=== PATIENT | female | born 1945 | race Caucasian/White ===

== ENCOUNTER 2020-03-09 10:15 | Outpatient (CLI) | payer MEDICARE, SELFPAY ==
--- NOTE | ~2020-03-09 | MM_ITS ---
EXAMINATION: MM screening candelario RT w artur HISTORY: Screening mammogram TECHNIQUE: Craniocaudal and mediolateral oblique 3-D tomosynthesis images were obtained and synthetic 2-D images were generated. CAD analysis was submitted and interpreted. COMPARISON: No prior mammogram is available for comparison at this institution. BREAST PARENCHYMAL COMPOSITION: There are scattered areas of fibroglandular density. FINDINGS: There are numerous benign right breast calcifications. There is no evidence of suspicious m ass, calcification, or architectural distortion to suggest malignancy in either breast. There has bee n no suspicious interval change. IMPRESSION: 1. No mammographic evidence of malignancy. 2. Recommend routine screening mammography in one year. BI-RADS Category 2: Benign finding(s). Reviewed, dictated and finalized at location A.
== END 2020-03-09 10:16 | disposition home or self-care (01) ==
LOC: ANHIMG 10:16
PROVIDERS: PCP Internal Medicine; Visit Provider Internal Medicine Hematology & Oncology
DX: Z12.31 Encounter for screening mammogram for malignant neoplasm of breast (principal)
CPT/HCPCS: 77063; 77067

== ENCOUNTER 2020-04-19 02:11 | Outpatient (CLI) | payer MEDICARE, SELFPAY ==
[2020-04-19 19:20] LABS: SARS-CoV-2 RNA PCR Negative
== END 2020-04-19 02:12 | disposition home or self-care (01) ==
LOC: ANHCOVIDDT 02:11
PROVIDERS: PCP Internal Medicine; Visit Provider Surgery
DX: Z01.812 Encounter for preprocedural laboratory examination (principal); Z20.828 Contact with and (suspected) exposure to other viral communicable diseases
CPT/HCPCS: 87635; C9803; U0003

== ENCOUNTER 2020-04-21 01:55 | Day surgery (SDC) | payer MEDICARE, SELFPAY ==
[2020-04-12 15:29] VITALS: BMI 33.0
[2020-04-21] MEDS: LACTATED RINGERS 1,000 ML 30 ML IV CONT (13:55)
[2020-04-21 14:03] LABS: Glucose Point of Care 104 (65-105)
--- NOTE | 2020-04-21 14:06 | WPDANESEPPF ---
Anes - Initial Pre Proc Eval Procedure: Operation Date: 04/21/20 15:00 Proposed Procedures p Removal Cassie Cath - Evan Vasquez DO Date/Time: 04/21/20 14:06 Surgeon: Evan Vasquez DO Pre Op Diagnosis: Carcinoma of Overlapping Sites of Left Breast Patient Data Age: 74 Gender: F Height: 5 ft 2 in Weight: 81.8 kg Allergies Allergy/AdvReac Type Severity Reaction Status Date / Time adhesive tape Allergy Intermediate Rash Verified 04/12/20 15:12 azithromycin Allergy Intermediate Swelling Verified 04/12/20 15:12 of Lip/Tongue/Throat cephalexin Allergy Mild Rash Verified 04/12/20 15:12 clindamycin Allergy Mild BLOOD IN Verified 04/12/20 15:12 STOOL metaxalone Allergy Mild Swelling Verified 04/12/20 15:12 of Lip/Tongue/Throat sulfamethoxazole Allergy Mild Rash Verified 04/12/20 15:12 trimethoprim Allergy Mild Rash Verified 04/12/20 15:12 venlafaxine Allergy Mild Back Pain Verified 04/12/20 15:12 carboxymethylcellulose sodium Allergy Unknown Other Verified 04/12/20 15:12 [From Refresh Plus] ezetimibe Allergy Unknown Dizziness Verified 04/12/20 15:12 olopatadine Allergy Unknown Other Verified 04/12/20 15:12 omeprazole Allergy Unknown Swelling Verified 04/12/20 15:12 Penicillins Allergy Unknown Rash Verified 04/12/20 15:12 [id number] Reductase Allergy Unknown Dizziness Verified 04/12/20 15:12 Inhibitor ciprofloxacin AdvReac Mild Other Verified 04/12/20 15:12 codeine AdvReac Mild Nausea Verified 04/12/20 15:12 esomeprazole AdvReac Mild Diarrhea Verified 04/12/20 15:12 Home Medications Medication Instructions Recorded Confirmed Type Calcium 600 + D(3) 600 tablet PO DAILY 05/25/19 04/12/20 History acetaminophen 500 mg PO Q4-6H PRN 05/25/19 04/12/20 History cholecalciferol (vitamin D3) 50,000 unit PO WEEKLY 05/25/19 04/12/20 History levothyroxine 112 mcg PO DAILY 05/25/19 04/21/20 History cyanocobalamin (vitamin B-12) 1,000 mcg PO DAILY 07/02/19 04/12/20 History ferrous sulfate 325 mg PO DAILY 07/02/19 04/12/20 History anastrozole 1 mg tablet 1 mg PO DAILY 11/05/19 04/12/20 History metformin 500 mg tablet 500 mg PO QPM tablet 11/05/19 04/12/20 History ascorbic acid (vitamin C) [Vitamin 500 mg PO DAILY 04/12/20 04/12/20 History C] ascorbic acid-vitamin E-biotin 1 tablet PO DAILY 04/12/20 04/12/20 History [Hair, Skin, Nails with Biotin] ibuprofen 200 mg PO Q6H PRN 04/12/20 04/12/20 History multivitamin 1 tablet PO DAILY 04/12/20 04/12/20 History Laboratory Tests 04/21/20 13:58 POC Capillary Glucose 104 mg/dl mg/dl (65-105) Patient hx anesthesia problems: none Family hx anesthesia problems: none PMFSH Past Medical History Medical History Anemia Anxiety Arthritis 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, estrogen receptor positive Diabetes Endometrial ca Fatty liver Hypothyroidism Obesity Peripheral neuropathy Hodges-Pravin syndrome 2008 Surgical History Surgical History History of mastectomy Family History Family History Father Carcinoma of colon Mother Family history of Alzheimer's disease Sibling Family history of seizure disorder Social History Social History Smoking status: Never smoker Alcohol intake: current Living arrangements: alone Spiritual care concerns: No Anes - Eval Final PreProcedure Day of Procedure 04/21/20 14:06 Patient weight: obese Heart: regular rate and rhythm Lungs: clear to auscultation Airway: Mallampati scale class II Neurological: alert and oriented Last oral intake: >/= 8 hours ASA classification: III Emergent: no Anesthetic plan: proceed Anesthesia type and monitoring: general GIVS and standard monitoring Informed Consent: The [facility]
[2020-04-21 14:07] VITALS: BP 137/56; PULSE 84; RESP 20; TEMP 36.7; O2SAT 98
--- NOTE | 2020-04-21 14:21 | PM.IMHP ---
H&P: HPI History of Present Illness Date/Time: 04/21/20 14:21 Chief complaint: Carcinoma of Overlapping Sites of Left Breast Narrative: Kelley Coleman is a 74 year old female with hx of left breast cancer. She has completed chemotherapy and now needs the port removed. Review of Systems Review of Systems: All systems reviewed & are unremarkable except as noted in HPI and below Constitutional: Constitutional: Denies chills, Denies fever(s), Denies headache(s) and Denies weight loss Eyes: Eyes: Denies change in vision ENT: Denies dizziness, Denies headache(s), Denies neck mass and Denies throat swelling Cardiovascular: Cardiovascular: Denies chest pain, Denies lightheadedness and Denies dyspnea Respiratory: Respiratory: Denies cough, Denies dyspnea and Denies wheezing Gastrointestinal: Gastrointestinal: Denies abdominal pain, Denies change in bowel habits, Denies nausea and Denies vomiting Genitourinary: Genitourinary: Denies hematuria and Denies dysuria Musculoskeletal: Musculoskeletal: Reports as per HPI Integumentary/Breasts: Skin/Breast: Reports as per HPI Neurologic: Denies dizziness and Denies headache(s) Allergic/Immunologic: Allergic/Immunologic: Denies throat swelling and Denies wheezing PMF Past Medical History Medical History Anemia Anxiety Arthritis 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, estrogen receptor positive Diabetes Endometrial ca Fatty liver Hypothyroidism Obesity Peripheral neuropathy Hodges-Pravin syndrome 2008 Surgical History Surgical History History of mastectomy Family History Family History Father Carcinoma of colon Mother Family history of Alzheimer's disease Sibling Family history of seizure disorder Social History Social History Smoking status: Never smoker Alcohol intake: current Living arrangements: alone Spiritual care concerns: No Meds Home Medications and Allergies Home Medications Medication Instructions Recorded Confirmed Type Calcium 600 + D(3) 600 tablet PO DAILY 05/25/19 04/12/20 History acetaminophen 500 mg PO Q4-6H PRN 05/25/19 04/12/20 History cholecalciferol (vitamin D3) 50,000 unit PO WEEKLY 05/25/19 04/12/20 History levothyroxine 112 mcg PO DAILY 05/25/19 04/21/20 History cyanocobalamin (vitamin B-12) 1,000 mcg PO DAILY 07/02/19 04/12/20 History ferrous sulfate 325 mg PO DAILY 07/02/19 04/12/20 History anastrozole 1 mg tablet 1 mg PO DAILY 11/05/19 04/12/20 History metformin 500 mg tablet 500 mg PO QPM tablet 11/05/19 04/12/20 History ascorbic acid (vitamin C) [Vitamin 500 mg PO DAILY 04/12/20 04/12/20 History C] ascorbic acid-vitamin E-biotin 1 tablet PO DAILY 04/12/20 04/12/20 History [Hair, Skin, Nails with Biotin] ibuprofen 200 mg PO Q6H PRN 04/12/20 04/12/20 History multivitamin 1 tablet PO DAILY 04/12/20 04/12/20 History Allergies Allergy/AdvReac Type Severity Reaction Status Date / Time adhesive tape Allergy Intermediate Rash Verified 04/12/20 15:12 azithromycin Allergy Intermediate Swelling Verified 04/12/20 15:12 of Lip/Tongue/Throat cephalexin Allergy Mild Rash Verified 04/12/20 15:12 clindamycin Allergy Mild BLOOD IN Verified 04/12/20 15:12 STOOL metaxalone Allergy Mild Swelling Verified 04/12/20 15:12 of Lip/Tongue/Throat sulfamethoxazole Allergy Mild Rash Verified 04/12/20 15:12 trimethoprim Allergy Mild Rash Verified 04/12/20 15:12 venlafaxine Allergy Mild Back Pain Verified 04/12/20 15:12 carboxymethylcellulose sodium Allergy Unknown Other Verified 04/12/20 15:12 [From Refresh Plus] ezetimibe Allergy Unknown Dizziness Verified 04/12/20 15:12 olopatadine Allergy Unknown Other Verified 04/12/20 15:12 omeprazole Allergy Unknown Swe
[2020-04-21] MEDS: ceFAZolin 2 GM/D5W 50 ML 2 GM/50 ML BAG IVPB (14:27)
[2020-04-21] MEDS: LIDO 1%/EPINEPHRINE 1:100,000 20 ML VIAL 30 ML INFILTRATE (14:46)
--- NOTE | 2020-04-21 14:55 | P.OP_ITS ---
Procedure Note - Detailed Date of procedure: 04/21/20 Pre-op diagnosis: Carcinoma of Overlapping Sites of Left Breast Post-op diagnosis: same Procedure performed: Removal of right internal jugular Port-A-Cath Description of procedure: * Procedure as well as risks, benefits, and alternatives were discussed with the patient. Written consent was obtained and placed in chart prior to procedure. Patient was brought back to surgical suite. She was placed supine on operating table. Time-out was done to confirm patient and procedure. IV sedation was then administered by the Anesthesia Department. Her right chest and neck area was prepped and draped in sterile fashion using chlorhexidine prep. 1% lidocaine with epinephrine was infiltrated directly over the port. a 3 cm transverse incision was made directly over the port using a 15 blade scalpel. Electrocautery was used for hemostasis and for dissection down to the capsule around the port. the port was then carefully freed up from the surrounding capsule and the sutures that were holding the port in place were cut away using suture scissors. This freed up the port completely. A 3 0 Vicryl [id number] suture was then placed around the port tubing as it tunneled up towards the neck. The port tubing was then carefully withdrawn and removed completely. Pressure was applied at the neck where the insertion into the internal jugular vein was at. The 3 0 Vicryl suture was then tied down in place. After holding pressure for several minutes, no bleeding was identified. The deep dermis was then reapproximated using 3 0 Vicryl simple interrupted sutures and the skin was approximated using 4 O Monocryl subcuticular suture. Exofin glue was then applied on top. Patient was then awakened from anesthesia and transferred to recovery. Anesthesia: MAC and local (1% lidocaine with epinephrine) Surgeon: Evan Vasquez DO Estimated blood loss (mL): 5 Complications: No immediate complications Condition: stable Disposition: same day Findings: * Right internal jugular Port-A-Cath was removed. The catheter tip appeared intact. No other abnormalities were noted. Port was sent to the lab for gross pathology only.
[2020-04-21 15:00] VITALS: BP 135/61; PULSE 94; RESP 16; O2SAT 100
[2020-04-21 15:30] VITALS: BP 142/73; PULSE 78; RESP 16
[2020-04-21 16:00] VITALS: BP 143/58; PULSE 77; RESP 16
[2020-04-21 16:11] LABS: Glucose Point of Care 148 (65-105)
== END 2020-04-21 16:15 | disposition home or self-care (01) ==
PROVIDERS: PCP Internal Medicine; Visit Provider Surgery
PROC: (CPT 36589; principal; 2020-04-21 15:00)
DX: Z45.2 Encounter for adjustment and management of vascular access device (principal); Z85.3 Personal history of malignant neoplasm of breast; Z92.21 Personal history of antineoplastic chemotherapy; E11.40 Type 2 diabetes mellitus with diabetic neuropathy, unspecified; E03.9 Hypothyroidism, unspecified; K76.0 Fatty (change of) liver, not elsewhere classified; D64.9 Anemia, unspecified; Z79.84 Long term (current) use of oral hypoglycemic drugs; Z79.811 Long term (current) use of aromatase inhibitors; Z85.42 Personal history of malignant neoplasm of other parts of uterus; Z90.12 Acquired absence of left breast and nipple
CPT/HCPCS: 36590; 88300; J0690; J2704; J3010; J7120

== ENCOUNTER 2020-10-04 09:41 | Outpatient (CLI) | payer MEDICARE, SELFPAY ==
--- NOTE | ~2020-10-04 | DEXA_ITS ---
Bone Density Report Name: Kelley Coleman Age: 74 Sex: Female Ethnicity: White Date of : 1945 Indication: postmenopausal; parental hip fracture; height loss; prior fracture; cancer; hysterectomy; Referring Provider: Karl Singh Study: Bone densitometry was performed. Exam Date: October 04, 2020 Accession number: [id number] Bone Density: Region BMD T-score Z-score Classification AP Spine (L1-L4) 0.904 -1.3 1.0 Osteopenia Femoral Neck (Left) 0.493 -3.2 -1.2 Osteoporosis Total Hip (Left) 0.679 -2.2 -0.5 Osteopenia Total Hip Bilateral Avg 0.689 -2.1 -0.4 Osteopenia Femoral Neck (Right) 0.545 -2.7 -0.8 Osteoporosis Total Hip (Right) 0.698 -2.0 -0.3 Osteopenia World Health Organization criteria for BMD impression classify patients as: Normal (T-score at or above -1.0), Osteopenia (T-score between -1.0 and -2.5), or Osteoporosis (T-score at or below -2.5). 10-year Fracture Risk: FRAX not reported because: Some T-score for Spine Total or Hip Total or Femoral Neck at or below -2.5 Clinical Information Provided by Patient: Has had a low trauma fracture Parent has had a hip fracture Has used the following medications: Fosamax (i.e. alendronate), Vitamin D, Calcium Has the following medical conditions: Cancer, Hysterectomy Patient maximum height was 64 Menopause Age: 51 No regular weight bearing exercise Drinks caffeinated beverages Onset of menses at age 13 Number of children 3 Impression: The patient has established osteoporosis, based on the Left Femoral Neck T-score and the existence of a prior fracture. The patient has risk factors, including: parental hip fracture, previous fracture. Discussion: HIGH RISK OF FRACTURE. BONE DENSITY IS UNDESIRABLY LOW AT ONE OR MORE SKELETAL SITES, CONSISTENT WITH POSTMENOPAUSAL OSTEOPOROSIS. This patient's lowest T-score, in a patient who has previously fractured, meets the World Health Organization's (WHO) criteria for severe osteoporosis. In untreated patients, the risk of osteoporotic fracture increases approximately two-fold for each 1.0 SD decrease in T-score. Low bone density is not the only risk factor for fracture; also consider factors such as patient's age, frailty or poor health, risk of falling, risk of injury, previous osteoporotic fracture, family history of osteoporosis, cigarette smoking, low body weight, etc. Not everyone with low bone mineral density has osteoporosis; osteomalacia and other metabolic bone disorders should also be considered. Patients who have osteoporosis should be evaluated for specific diseases and conditions (secondary causes) that may cause or contribute to bone loss. The [place] [employer]ocrinologists (AACE) and National Osteoporosis Foundation (NOF) recommend pharmacologic intervention for all postmenopausal women whose T-
== END 2020-10-04 09:42 | disposition home or self-care (01) ==
LOC: ANHIMG 09:42
PROVIDERS: PCP Internal Medicine; Visit Provider Internal Medicine Hematology & Oncology
DX: M85.89 Other specified disorders of bone density and structure, multiple sites (principal); M81.0 Age-related osteoporosis without current pathological fracture
CPT/HCPCS: 77080

== ENCOUNTER 2023-05-16 13:18 | Outpatient (CLI) | payer MEDICARE, SELFPAY ==
[2023-05-16 14:53] LABS: Basophils Percent Auto 0.8 % (0.2-1.2); Mean Corpuscular Volume 96.4 fl (80-100); Red Cell Distribution Width 13.3 % (11.5-14.5)
[2023-05-16 15:08] LABS: Eosinophils Absolute Auto 0.2 K/mm3 (0-0.3); Hematocrit 37.4 % (37.0-47.0); Hemoglobin 12.8 g/dL (12.0-15.0); Immature Granulocyte Absolute 0.02 K/mm3 (0.00-0.031); Immature Granulocyte Percent A 0.4 % (0-0.5); Lymphocytes Absolute Auto 1.69 K/mm3 (0.9-3.2); Lymphocytes Percent Auto 32.6 % (18.3-44.2); Mean Corpuscular HGB Conc 34.2 g/dl (32-36); Mean Platelet Volume 10.2 fl (7.4-10.4); Monocytes Absolute Auto 0.5 K/mm3 (0.1-0.6); Neutrophils Absolute Auto 2.7 K/mm3 (1.3-6.7); Neutrophils Percent Auto 52.2 % (45.5-73.1); Platelet Count Result 109 k/mm3 (150-375); Red Blood Count 3.88 M/mm3 (4.2-5.4); White Blood Count 5.2 K/mm3 (4.5-10.0)
[2023-05-16 16:26] LABS: Alanine Aminotransferase 37 U/L (6-35); Albumin Level 3.5 g/dL (3.5-5.1); Alkaline Phosphatase 69 U/L (38-126); Anion Gap 6 mmol/L (8-16); Aspartate Amino Transferase 55 U/L (14-36); Bilirubin,Total 1.3 mg/dL (0.2-1.3); Blood Urea Nitrogen 7 mg/dL (7-17); Calcium 8.4 mg/dL (8.4-10.2); Carbon Dioxide 25 mmol/L (22-30); Chloride 107 mmol/L (98-107); Estimated Glomerular Filt Rate > 60; Glucose 109 mg/dL (65-110); Sodium 138 mmol/L (137-145)
[2023-05-20 14:49] LABS: CA 15-3 20 U/mL (<32)
== END 2023-05-16 13:19 | disposition home or self-care (01) ==
LOC: ANHLAB 13:21
PROVIDERS: PCP Internal Medicine; Visit Provider Internal Medicine Hematology & Oncology
DX: C50.812 Malignant neoplasm of overlapping sites of left female breast (principal); Z17.0 Estrogen receptor positive status [ER+]
CPT/HCPCS: 36415; 80053; 85025; 86300

== ENCOUNTER 2024-04-07 12:34 | Outpatient (CLI) | payer MEDICARE, SELFPAY ==
[2024-04-07 13:25] LABS: Hematocrit 39.4 % (37.0-47.0); Hemoglobin 13.6 g/dL (12.0-15.0); Immature Platelet Fraction Pct 3.6 % (0.9-11.2); Mean Corpuscular HGB Conc 34.5 g/dl (32-36); Mean Corpuscular Hemoglobin 33.7 pg (26-34); Mean Corpuscular Volume 97.5 fl (80-100); Mean Platelet Volume 10.2 fl (7.4-10.4); Platelet Count Result 103 k/mm3 (150-375); Red Blood Count 4.04 M/mm3 (4.2-5.4); Red Cell Distribution Width 14.2 % (11.5-14.5); White Blood Count 5.1 K/mm3 (4.5-10.0)
[2024-04-07 13:35] LABS: Alanine Aminotransferase 24 U/L (6-35); Albumin Level 3.7 g/dL (3.5-5.1); Alkaline Phosphatase 59 U/L (38-126); Anion Gap 8 mmol/L (4-12); Aspartate Amino Transferase 46 U/L (14-36); Bilirubin,Total 1.4 mg/dL (0.2-1.3); Blood Urea Nitrogen 8 mg/dL (7-17); Calcium 8.7 mg/dL (8.4-10.2); Carbon Dioxide 27 mmol/L (22-30); Chloride 105 mmol/L (98-107); Estimated Glomerular Filt Rate > 60; Glucose 99 mg/dL (65-110); Potassium 3.5 mmol/L (3.4-5.0); Sodium 140 mmol/L (137-145)
[2024-04-07 13:51] LABS: Iron 86 ug/dL (37-170)
[2024-04-07 14:02] LABS: Percent Iron Saturation 29 % (20-50)
[2024-04-07 14:23] LABS: Hepatitis B Surface Antigen Negative (Negative)
[2024-04-07 14:28] LABS: HAV RESULT Negative (Negative); Hepatitis B Core IgM Result Negative (Negative)
[2024-04-07 14:40] LABS: Hepatitis B Surface Anti Res Negative; Hepatitis C Virus Antibody Negative (Negative)
[2024-04-08 14:29] LABS: Alpha-1-Antitrypsin, QN 224 mg/dL (83-199); Ceruloplasmin 36 mg/dL (14-48)
[2024-04-09 11:17] LABS: Alpha Fetoprotein Tumor Marker 6.2 ng/mL
[2024-04-09 22:49] LABS: LKM 1 Antibody <=20.0 U (<=20.0)
[2024-04-11 12:33] LABS: Actin Antibody (IgG) 23 U (<20)
[2024-04-15 21:03] LABS: Hepatitis A Antibody Total REACTIVE (NON-REACTIVE); Hepatitis B Core Ab Total NON-REACTIVE (NON-REACTIVE)
[2024-04-19 14:47] LABS: Mitochondrial (M2) Ab (IgG) <20.0 U
== END 2024-04-07 12:35 | disposition home or self-care (01) ==
LOC: ANHLAB 12:53
PROVIDERS: PCP Family Medicine; Visit Provider Nurse Practitioner
DX: K74.60 Unspecified cirrhosis of liver (principal); K52.9 Noninfective gastroenteritis and colitis, unspecified; Z11.59 Encounter for screening for other viral diseases
CPT/HCPCS: 36415; 80053; 80074; 82103; 82105; 82390; 82728; 83520; 83540; 83550; 85027; 85055; 86038; 86039; 86364; 86376; 86704; 86706; 86708

== ENCOUNTER 2024-05-19 10:25 | Outpatient (CLI) | payer MEDICARE, SELFPAY ==
[2024-05-19 10:42] LABS: Eosinophils Absolute Auto 0.2 K/mm3 (0-0.3); Eosinophils Percent Auto 5.8 % (0-4.4); Hematocrit 35.3 % (37.0-47.0); Hemoglobin 11.7 g/dL (12.0-15.0); Lymphocytes Absolute Auto 0.97 K/mm3 (0.9-3.2); Lymphocytes Percent Auto 24.3 % (18.3-44.2); Mean Corpuscular HGB Conc 33.1 g/dl (32-36); Mean Corpuscular Hemoglobin 33.3 pg (26-34); Mean Corpuscular Volume 100.6 fl (80-100); Mean Platelet Volume 9.8 fl (7.4-10.4); Monocytes Absolute Auto 0.5 K/mm3 (0.1-0.6); Monocytes Percent Auto 11.3 % (2.6-8.5); Neutrophils Absolute Auto 2.3 K/mm3 (1.3-6.7); Neutrophils Percent Auto 57.6 % (45.5-73.1); Platelet Count Result 69 k/mm3 (150-375); Red Blood Count 3.51 M/mm3 (4.2-5.4)
[2024-05-19 12:38] LABS: Alanine Aminotransferase 24 U/L (6-35); Albumin Level 3.3 g/dL (3.5-5.1); Alkaline Phosphatase 57 U/L (38-126); Anion Gap 7 mmol/L (4-12); Aspartate Amino Transferase 42 U/L (14-36); Blood Urea Nitrogen 7 mg/dL (7-17); Calcium 8.6 mg/dL (8.4-10.2); Carbon Dioxide 25 mmol/L (22-30); Chloride 107 mmol/L (98-107); Estimated Glomerular Filt Rate > 60; Glucose 173 mg/dL (65-110); Potassium 3.9 mmol/L (3.4-5.0); Sodium 139 mmol/L (137-145)
[2024-05-21 07:24] LABS: CA 15-3 19 U/mL (<32)
== END 2024-05-19 10:26 | disposition home or self-care (01) ==
LOC: ANHLAB 10:27
PROVIDERS: PCP Family Medicine; Visit Provider Internal Medicine Hematology & Oncology
DX: C50.412 Malignant neoplasm of upper-outer quadrant of left female breast (principal); Z17.0 Estrogen receptor positive status [ER+]
CPT/HCPCS: 36415; 80053; 85025; 86300

== ENCOUNTER 2024-11-16 13:06 | Outpatient (CLI) | payer MEDICARE, SELFPAY ==
[2024-11-16 13:22] LABS: Basophils Percent Auto 0.7 % (0.2-1.2); Eosinophils Absolute Auto 0.2 K/mm3 (0-0.3); Eosinophils Percent Auto 3.9 % (0-4.4); Hematocrit 37.4 % (37.0-47.0); Hemoglobin 12.8 g/dL (12.0-15.0); Immature Granulocyte Absolute 0.01 K/mm3 (0.00-0.031); Immature Granulocyte Percent A 0.2 % (0-0.5); Immature Platelet Fraction Pct 2.9 % (0.9-11.2); Lymphocytes Absolute Auto 1.53 K/mm3 (0.9-3.2); Lymphocytes Percent Auto 28.5 % (18.3-44.2); Mean Corpuscular HGB Conc 34.2 g/dl (32-36); Mean Corpuscular Hemoglobin 33.2 pg (26-34); Mean Corpuscular Volume 96.9 fl (80-100); Mean Platelet Volume 9.5 fl (7.4-10.4); Monocytes Absolute Auto 0.6 K/mm3 (0.1-0.6); Monocytes Percent Auto 10.8 % (2.6-8.5); Neutrophils Percent Auto 55.9 % (45.5-73.1); Platelet Count Result 89 k/mm3 (150-375); Red Blood Count 3.86 M/mm3 (4.2-5.4); Red Cell Distribution Width 13.8 % (11.5-14.5); White Blood Count 5.4 K/mm3 (4.5-10.0)
[2024-11-16 13:52] LABS: Alanine Aminotransferase 29 U/L (6-35); Albumin Level 3.5 g/dL (3.5-5.1); Alkaline Phosphatase 64 U/L (38-126); Anion Gap 4 mmol/L (4-12); Aspartate Amino Transferase 45 U/L (14-36); Bilirubin,Total 1.1 mg/dL (0.2-1.3); Blood Urea Nitrogen 6 mg/dL (7-17); Calcium 9.2 mg/dL (8.4-10.2); Carbon Dioxide 29 mmol/L (22-30); Chloride 106 mmol/L (98-107); Estimated Glomerular Filt Rate > 60; Glucose 104 mg/dL (65-110); Potassium 4.3 mmol/L (3.4-5.0); Sodium 139 mmol/L (137-145)
--- OUTSIDE RECORDS SUMMARY | 2024-11-16 14:29 | XMS_ITS | Encounter Summary ---
Author Organization [facility] Address [address] [place] [address] Care Team Providers Care Hydrocrane Operator Name Role Phone Tita Russell MD Primary Care Provider + [phone] Encounter Details Date Type Department Care Team (Late st Contact Info) Description 03/04/2018 Lab Requisition [facility] [address] [place] [address] Chava Sin [place] [address] Social History Tobacco Use Types Packs/Day Years Used Date Smoking Tobacco: Never Assessed Sex and Gender Information Value Date Recorded Sex Assigned at Not on file Gender Identity Not on file Sexual Orientation Not on file documented as of this encounter Plan of Treatment Not on file documented as of this encounter Procedures Procedure Name Priority Date/Time Associated Diagnosis Comments DERMATOPATHOLOGY Routine 03/03/2018 12:0 0 AM CDT documented in this encounter Results * DERMATOPATHOLOGY (03/03/2018 12:00 AM CDT) Case Report Dermatopathology Report Case: [id number] Authorizing Provider: Chava Sin MD Collected: 03/03/2018 12:00 AM Pathologist: Cesia Foster MD Received: 03/04/2018 11:58 AM Specimen: Skin, right anterior chest 8 4:57 PM T DERMATOPATHOLOGY LABORATORY Final Diagnosis Specimen A. 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 4:57 PM T DERMATOPATHOLOGY LABORATORY Gross Description Specimen A: Received is one formalin filled container labeled with the patient's name and designated right anterior chest. The specimen consists of a shave biopsy measuring [id number]. Jar 0. 4:57 PM [facility] [place] 2] DERMATOPATHOLOGY LABORATORY Microscopic Description Specimen A. SKIN, right anterior chest: Sections show well-circumscribed lobules composed of central mature sebocytes and a smaller component of peripheral basaloid cells. COMMENT: Sebaceous neoplasms can be sporadic or associated with Aurea-Alvin syndrome. At the request of the clinician the specimen can be submitted for immunohistochemical testing of DNA mismatch repair genes if clinically indicated. 4:57 PM T DERMATOPATHOLOGY LABORATORY Disclaimer An external and internal positive and negative controls are appropriate for the histochemical, immunohistochemical and immunofluorescence stain(s) in this case (if any), except where stated explicitly. The performance characteristics of the stain(s) cited in this report were developed and its performance characteristic determined by the Dermatopathology Laboratory at [facility]. These tests need not be, and therefore are not, approved by the [place] Food and Drug Administration. The tests are used for clinical purposes. Billing Codes Specimen Charges Stain Charges 02019 1 4:57 PM CDT DERMATOPATHOLOGY LABORATORY Embedded Images 4:57 PM CDT DERMATOPATHOLOGY LABORATORY Pathology/Cytolog y TISSUE SPECIMEN FROM SKIN / Unknown 03/03/2018 03/04/2018 11:58 AM CDT Chava Sin MD LAB - PATHOLOGY/CYTO LOGY ORDERABLES DERMATOPATHOLOGY LABORATORY [facility] - Department of Dermatology [address] [place] [address] 5th Floor Lab [address] [phone] documented in this encounter Visit Diagnoses Not on filedocumented in this encounter Care Teams Hydrocrane Operator Relationship Specialty Start Date End Date Tita Russell MD PCP - General Internal Medicine 03/16/19 documented as of this encounter
--- OUTSIDE RECORDS SUMMARY | 2024-11-16 14:29 | XMS_ITS | Encounter Summary ---
Author Organization [facility] Address [address] [place] [address] Care Team Providers Care Tin Plater Name Role Phone Emi Dias MD Primary Care Provider [phone] Encounter Details Date Type Department Care Team (Latest Contact Info) Description 07/21/2006 Inpatient Historical HIS PATIENT IN A BED Renae Mike MD NO ADDRESS ON FILE Malignant Neoplasm of Corpus Uteri, except Isthmus (CMS/HCC) (Primary Dx) Social History Tobacco Use Types Packs/Day Years Used Date Smoking Tobacco: Never Assessed Comments Unknown Sex and Gender Information Value Date Recorded Sex Assigned at Not on file Legal Sex Female 5:05 AM ESCALATOR OPERATOR Gender Identity Not on file Sexual Orientation Not on file documented as of this encounter Plan of Treatment Upcoming Encounters Date Type Department Care Team (Late st Contact Info) Description 11/24/2024 11:30 AM CDT Office Visit [facility] Oncology and Hematology - [place] [address] [facility] [address] [place] [address] Karl Singh MD [address] [facility] [address] [place] [address] documented as of this encounter Procedures Procedure Name Priority Date/Time Associated Diagnosis Comments POC GLUCOSE Routine 07/23/2006 4:50 PM ESCALATOR OPERATOR POC GLUCOSE Routine 07/23/2006 6:29 AM ESCALATOR OPERATOR CBC WITH DIFFERENTIAL Routine 07/23/2006 4:45 AM ESCALATOR OPERATOR CBC WITH DIFFERENTIAL Routine 07/23/2006 4:45 AM ESCALATOR OPERATOR MAGNESIUM LEVEL Routine 07/23/2006 4:45 AM ESCALATOR OPERATOR BASIC METABOLIC PANEL Routine 07/23/2006 4:45 AM ESCALATOR OPERATOR POC GLUCOSE Routine 07/22/2006 8:39 PM ESCALATOR OPERATOR POC GLUCOSE Routine 07/22/2006 5:11 PM ESCALATOR OPERATOR CBC WITH DIFFERENTIAL Routine 07/22/2006 2:13 PM ESCALATOR OPERATOR CBC WITH DIFFERENTIAL Routine 07/22/2006 2:13 PM ESCALATOR OPERATOR MAGNESIUM LEVEL Routine 07/22/2006 2:13 PM ESCALATOR OPERATOR BASIC METABOLIC PANEL Routine 07/22/2006 2:13 PM ESCALATOR OPERATOR POC GLUCOSE Routine 07/22/2006 11:41 AM ESCALATOR OPERATOR POC GLUCOSE Routine 07/22/2006 5:15 AM ESCALATOR OPERATOR POC GLUCOSE Routine 07/21/2006 9:39 PM ESCALATOR OPERATOR POC GLUCOSE Routine 07/21/2006 10:27 AM ESCALATOR OPERATOR POC , URINE Routine 07/21/2006 9:17 AM ESCALATOR OPERATOR documented in this encounter Results * (ABNORMAL) POC GLUCOSE (07/23/2006 4:50 PM ESCALATOR OPERATOR) GLUCOSE POC 137(H) 65 - 99 mg/dL INTERFACE SYSTEM Comment: 06/26/2006 Change in reference range to correspond to Main Lab reference range. 07/23/2006 4:50 PM ESCALATOR OPERATOR us Renae Mike MD POINT OF CARE TESTING Final R esult Performing Organization Address [facility] de Phone Number INTERFACE SYSTEM Refer to clinic/hospital department * (ABNORMAL) POC GLUCOSE (07/23/2006 6:29 AM ESCALATOR OPERATOR) Pathologist [facility] GLUCOSE POC 167(H) 65 - 99 mg/dL INTERFACE SYSTEM Comment: 06/26/2006 Change in reference range to correspond to Main Lab reference range. 07/23/2006 6:29 AM ESCALATOR OPERATOR Renae Mike MD POINT OF CARE TESTING Final R esult Performing Organization Address [facility] de Phone Number INTERFACE SYSTEM Refer to clinic/hospital department * CBC WITH DIFFERENTIAL (07/23/2006 4:45 AM ESCALATOR OPERATOR) [facility] NEUTROPHILS 66 45 - 70 % INTERFAC E SYSTEM LYMPHOCYTES 17 16 - 45 % INTERFAC E SYSTEM MONOCYTES 12 3 - 13 % INTERFACE SYSTEM EOSINOPHILS 4 0 - 7 % INTERFAC E SYSTEM BASOPHILS 0 0 - 2 % INTERFACE SYSTEM NEUTROPHIL ABSOLUTE 5.79 1.90 - 7.00 K/uL INTERFACE SYSTEM LYMPHOCYTE ABSOLUTE 1.52 0.70 - 4.50 K/uL INTERFACE SYSTEM MONOCYTE ABSOLUTE 1.04 0.10 - 1.30 K/uL INTERFACE SYSTEM EOSINOPHIL ABSOLUTE 0.36 0.00 - 0.70 K/uL INTERFACE SYSTEM BASOPHILS ABSOLUTE 0.02 0.00 - 0.20 K/uL INTERFACE SYSTEM 07/23/2006 4:45 AM ESCALATOR OPERATOR Result [facility] Renae Mike MD HEMATOLOGY ORDERABLES Final R esult Performing Organization Address [facility] de Phone Number INTERFACE SYSTEM Refer to clinic/hospital department * (ABNORMAL) CBC WITH DIFFERENTIAL (07/23/2006 4:45 AM ESCALATOR OPERATOR) Pathologist [facility] WBC 8.7 4.0 - 9.8 K/uL INTERFACE SYSTEM RBC 3.58(L) 3.90 - 4.90 M/uL INTERFACE SYSTEM HEMOGLOBIN 10.9(L) 11.8 - 14.8 g/dL INTERFACE SYSTEM HEMATOCRIT 32.7(L) 35.5 - 44.0 % INTERFACE SYSTEM MCV 91.3 82.0 - 99.0 fL INTERFACE SYSTEM MCH 30.4 27.2 - 32.6 pg INTERFACE SYSTEM MCHC 33.3 31.5 - 35.5 % INTERFACE SYSTEM RDW 13.8 11.5 - 14.5 % INTERFACE SYSTEM RDW-STDEV 45.7 37.1 - 48.7 fL INTERFACE SYSTEM PLATELETS 230 140 - 350 K/uL INTERFACE SYSTEM MPV 9.9 9.3 - 12.4 fL INTERFACE SYSTEM 07/23/2006 4:45 AM ESCALATOR OPERATOR Renae Mike MD HEMATOLOGY ORDERABLES Final R esult Performing Organization Address [facility] Co de Phone Number INTERFACE SYSTEM Refer to clinic/hospital department * MAGNESIUM LEVEL (07/23/2006 4:45 AM ESCALATOR OPERATOR) MAGNESIUM 1.9 1.5 - 2.5 mg/dL INTERFACE SYSTEM 07/23/2006 4:45 AM ESCALATOR OPERATOR Renae Mike MD CHEMISTRY ORDERABLES Final Re sult Performing Organization Address [facility] de Phone Number INTERFACE SYSTEM Refer to clinic/hospital department * (ABNORMAL) BASIC METABOLIC PANEL (07/23/2006 4:45 AM ESCALATOR OPERATOR) GLUCOSE 126(H) 65 - 99 mg/dL INTERFACE SYSTEM CREATININE 0.71 0.51 - 0.95 mg/dL INTERFACE SYSTEM Comment:Note: Effective 06/11 New Methodolgy and Reference Ranges CALCIUM 7.7(L) 8.4 - 10.2 mg/dL INTERFACE SYSTEM BUN 6 6 - 20 mg/dL INTERFACE SYSTEM SODIUM 143 135 - 145 mmol/L INTERFACE SYSTEM POTASSIUM 3.8 3.5 - 4.9 mmol/L INTERFACE SYSTEM CHLORIDE 110(H) 96 - 108 mmol/L INTERFACE SYSTEM CO2 28 22 - 30 mmol/L INTERFACE SYSTEM GFR, >60 >=60 mL/min/1. 7 sq meter INTERFACE SYSTEM GFR >60 >=60 mL/min/1. 7 sq meter INTERFACE SYSTEM Comment: Estimated GFR rate interpretative information for both Americans and non- Americans is available on the [facility] Intranet at: [email or web address] Select: Lab Policies and Procedures Select: Reference Ranges - GFR 07/23/2006 4:45 AM ESCALATOR OPERATOR Result Kelly Mike MD CHEMISTRY ORDERABLES Final Re sult Performing Organization Address [facility] Phone Number INTERFACE SYSTEM Refer to clinic/hospital department * (ABNORMAL) POC GLUCOSE (07/22/2006 8:39 PM ESCALATOR OPERATOR) COMMENT, GLU POC Notified RN INTERFACE SYSTEM GLUCOSE POC 145(H) 65 - 99 mg/dL INTERFACE SYSTEM Comment: 06/26/2006 Change in reference range to correspond to Main Lab reference range. 07/22/2006 8:39 PM ESCALATOR OPERATOR us eRnae Mike MD POINT OF CARE TESTING Final R esult Performing Organization Address [facility] Phone Number INTERFACE SYSTEM Refer to clinic/hospital department * (ABNORMAL) POC GLUCOSE (07/22/2006 5:11 PM ESCALATOR OPERATOR) GLUCOSE POC 121(H) 65 - 99 mg/dL INTERFACE SYSTEM 07/22/2006 5:11 PM ESCALATOR OPERATOR Result Kelly Mike MD POINT OF CARE TESTING Final R kenneth Performing Organization Address [facility] Phone Number INTERFACE SYSTEM Refer to clinic/hospital department * (ABNORMAL) CBC WITH DIFFERENTIAL (07/22/2006 2:13 PM ESCALATOR OPERATOR) NEUTROPHILS 73(H) 45 - 70 % INTERFAC E SYSTEM LYMPHOCYTES 18 16 - 45 % INTERFAC E SYSTEM MONOCYTES 9 3 - 13 % INTERFACE SYSTEM EOSINOPHILS 1 0 - 7 % INTERFAC E SYSTEM BASOPHILS 0 0 - 2 % INTERFACE SYSTEM NEUTROPHIL ABSOLUTE 9.50(H) 1.90 - 7.00 K/uL INTERFACE SYSTEM LYMPHOCYTE ABSOLUTE 2.32 0.70 - 4.50 K/uL INTERFACE SYSTEM MONOCYTE ABSOLUTE 1.15 0.10 - 1.30 K/uL INTERFACE SYSTEM EOSINOPHIL ABSOLUTE 0.06 0.00 - 0.70 K/uL INTERFACE SYSTEM BASOPHILS ABSOLUTE 0.04 0.00 - 0.20 K/uL INTERFACE SYSTEM 07/22/2006 2:13 PM ESCALATOR OPERATOR Renae Mike MD HEMATOLOGY ORDERABLES Final R esult Performing Organization Address [facility] Phone Number INTERFACE SYSTEM Refer to clinic/hospital department * (ABNORMAL) CBC WITH DIFFERENTIAL (07/22/2006 2:13 PM ESCALATOR OPERATOR) WBC 13.1(H) 4.0 - 9.8 K/uL INTERFACE SYSTEM RBC 3.84(L) 3.90 - 4.90 M/uL INTERFACE SYSTEM HEMOGLOBIN 11.5(L) 11.8 - 14.8 g/dL INTERFACE SYSTEM HEMATOCRIT 34.2(L) 35.5 - 44.0 % INTERFACE SYSTEM MCV 89.1 82.0 - 99.0 fL INTERFACE SYSTEM MCH 29.9 27.2 - 32.6 pg INTERFACE SYSTEM MCHC 33.6 31.5 - 35.5 % INTERFACE SYSTEM RDW 13.7 11.5 - 14.5 % INTERFACE SYSTEM RDW-STDEV 44.5 37.1 - 48.7 fL INTERFACE SYSTEM PLATELETS 263 140 - 350 K/uL INTERFACE SYSTEM MPV 9.6 9.3 - 12.4 fL INTERFACE SYSTEM 07/22/2006 2:13 PM ESCALATOR OPERATOR Renae Mike MD HEMATOLOGY ORDERABLES Final R esult Performing Organization Address [facility] Phone Number INTERFACE SYSTEM Refer to clinic/hospital department * MAGNESIUM LEVEL (07/22/2006 2:13 PM ESCALATOR OPERATOR) MAGNESIUM 1.9 1.5 - 2.5 mg/dL INTERFACE SYSTEM 07/22/2006 2:13 PM ESCALATOR OPERATOR Renae Mike MD CHEMISTRY ORDERABLES Final Re sult Performing Organization Address [facility] Phone Number INTERFACE SYSTEM Refer to clinic/hospital department * (ABNORMAL) BASIC METABOLIC PANEL (07/22/2006 2:13 PM ESCALATOR OPERATOR) GLUCOSE 112(H) 65 - 99 mg/dL INTERFACE SYSTEM CREATININE 0.77 0.51 - 0.95 mg/dL INTERFACE SYSTEM Comment:Note: Effective 06/11 New Methodolgy and Reference Ranges CALCIUM 7.7(L) 8.4 - 10.2 mg/dL INTERFACE SYSTEM BUN 8 6 - 20 mg/dL INTERFACE SYSTEM SODIUM 138 135 - 145 mmol/L INTERFACE SYSTEM POTASSIUM 3.9 3.5 - 4.9 mmol/L INTERFACE SYSTEM CHLORIDE 104 96 - 108 mmol/L INTERFACE SYSTEM CO2 28 22 - 30 mmol/L INTERFACE SYSTEM GFR, >60 >=60 mL/min/1. 7 sq meter INTERFACE SYSTEM GFR >60 >=60 mL/min/1. 7 sq meter INTERFACE SYSTEM Comment: Estimated GFR rate interpretative information for both Americans and non- Americans is available on the [facility] Intranet at: [email or web address] Select: Lab Policies and Procedures Select: Reference Ranges - GFR 07/22/2006 2:13 PM ESCALATOR OPERATOR Renae Mike MD CHEMISTRY ORDERABLES Final Re sult Performing Organization Address [facility] de Phone Number INTERFACE SYSTEM Refer to clinic/hospital department * (ABNORMAL) POC GLUCOSE (07/22/2006 11:41 AM ESCALATOR OPERATOR) GLUCOSE POC 146(H) 65 - 99 mg/dL INTERFACE SYSTEM Comment: 06/26/2006 Change in reference range to correspond to Main Lab reference range. 07/22/2006 11:4 1 AM ESCALATOR OPERATOR Renae Mike MD POINT OF CARE TESTING Final R esult Performing Organization Address [facility] Co de Phone Number INTERFACE SYSTEM Refer to clinic/hospital department * (ABNORMAL) POC GLUCOSE (07/22/2006 5:15 AM ESCALATOR OPERATOR) GLUCOSE POC 190(H) 65 - 99 mg/dL INTERFACE SYSTEM Comment: 06/26/2006 Change in reference range to correspond to Main Lab reference range. 07/22/2006 5:15 AM ESCALATOR OPERATOR us Renae Mike MD POINT OF CARE TESTING Final R esult Performing Organization Address [facility] Phone Number INTERFACE SYSTEM Refer to clinic/hospital department * (ABNORMAL) POC GLUCOSE (07/21/2006 9:39 PM ESCALATOR OPERATOR) GLUCOSE POC 165(H) 65 - 99 mg/dL INTERFACE SYSTEM Comment: 06/26/2006 Change in reference range to correspond to Main Lab reference range. 07/21/2006 9:39 PM ESCALATOR OPERATOR us Renae Mike MD POINT OF CARE TESTING Final R esult Performing Organization Address [facility] Phone Number INTERFACE SYSTEM Refer to clinic/hospital department * (ABNORMAL) POC GLUCOSE (07/21/2006 10:27 AM ESCALATOR OPERATOR) GLUCOSE POC 112(H) 65 - 99 mg/dL INTERFACE SYSTEM Comment: 06/26/2006 Change in reference range to correspond to Main Lab reference range. 07/21/2006 10:2 7 AM ESCALATOR OPERATOR us Renae Mike MD POINT OF CARE TESTING Final R esult Performing Organization Address [facility] Phone Number INTERFACE SYSTEM Refer to clinic/hospital department * POC , URINE (07/21/2006 9:17 AM ESCALATOR OPERATOR) HCG QUAL URINE Negative Negative INTER FACE SYSTEM SPECIFIC GRAVITY UA 1.020 1.001 - 1.035 INTERFACE SYSTEM 07/21/2006 9:17 AM ESCALATOR OPERATOR Result Kelly Mike MD POINT OF CARE TESTING Final R esult Performing Organization Address [facility] Phone Number INTERFACE SYSTEM Refer to clinic/hospital department documented in this encounter Visit Diagnoses Diagnosis Malignant neoplasm of corpus uteri, except isthmus (CMS/HCC)- Primary Malignant neoplasm of corpus uteri, except isthmus documented in this encounter Care Teams Tin Plater Relationship Specialty [place] [id number] [address] PCP - General Family Practice 11/12/23 documented as of this encounter
--- OUTSIDE RECORDS SUMMARY | 2024-11-16 14:29 | XMS_ITS | Encounter Summary ---
Author Organization [facility] Address [address] [place] [address] Care Team Providers Care Employee Development Director Name Role Phone Emi Dias MD Primary Care Provider [phone] Encounter Details Date Type Department Care Team (Latest Contact Info) Description 07/21/2006 Outpatient Historical HIS LAB,NON-PATIENT Renae Mike MD NO ADDRESS ON FILE Other Specified Disorders of Uterus, not Elsewhere Classified (Primary Dx) Social History Tobacco Use Types Packs/Day Years Used Date Smoking Tobacco: Never Assessed Comments Unknown Sex and Gender Information Value Date Recorded Sex Assigned at Not on file Legal Sex Female 5:05 AM WELDING TECHNICIAN Gender Identity Not on file Sexual Orientation Not on file documented as of this encounter Plan of Treatment Upcoming Encounters Date Type Department Care Team (Late st Contact Info) Description 11/24/2024 11:30 AM CDT Office Visit [facility] Oncology and Hematology - [place] [address] [facility] [address] [place] [address] Karl Singh MD [address] [facility] [address] [place] [address] documented as of this encounter Visit Diagnoses Diagnosis Other specified disorders of uterus, not elsewhere classified- Primary documented in this encounter Care Teams Employee Development Director Relationship Specialty [place] [address] [address] [facility] [address] [place] [address] PCP - General Family Practice 11/12/23 documented as of this encounter
--- OUTSIDE RECORDS SUMMARY | 2024-11-16 14:29 | XMS_ITS | Encounter Summary ---
Author Organization [facility] Address [address] [place] [address] Care Team Providers Care Commercial Loan Assistant Name Role Phone Unavailable Primary Care Provider Unavailabl e Encounter Details Date Type Department Care Team (Latest Contact Info) Description 07/24/1922 10:55 AM MEDICAL OFFICE MANAGER - 07/24/1922 11:59 PM MEDICAL OFFICE MANAGER Hospital Encounter [facility] Kash Antunez [address] [place] [address] [facility], External Provider [address] [place] [address] Discharge Disposition: Home or Self Care Social History Tobacco Use Types Packs/Day Years Used Date Smoking Tobacco: Never Assessed Comments Unknown Sex and Gender Information Value Date Recorded Sex Assigned at Not on file Legal Sex Female 5:05 AM MEDICAL OFFICE MANAGER Gender Identity Not on file Sexual Orientation Not on file documented as of this encounter Plan of Treatment Upcoming Encounters Date Type Department Care Team (Late st Contact Info) Description 11/24/2024 11:30 AM CDT Office Visit [facility] Oncology and Hematology - [place] [address] [facility] [address] [place] [address] Karl Singh MD [address] [facility] [address] [place] [address] documented as of this encounter Procedures Procedure Name Priority Date/Time Associated Diagnosis Comments MAMMO PRIOR STUDY Routine 07/24/1922 10: 55 AM MEDICAL OFFICE MANAGER Follow-up exam documented in this encounter Results * MAMMO PRIOR STUDY (07/24/1922 10:55 AM MEDICAL OFFICE MANAGER) Narrative 08/14/2022 10:52 AM MEDICAL OFFICE MANAGER This exam was auto finalized to allow images to be scanned to PACS. External Provider [facility] DIAGNOSTIC IMAGING ORDER ANTONIO Final Result documented in this encounter Visit Diagnoses Diagnosis Follow-up exam Unspecified follow-up examination documented in this encounter
--- OUTSIDE RECORDS SUMMARY | 2024-11-16 14:29 | XMS_ITS | Clinical Summary ---
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 MD, 11/03/2024 10:30 AM Narrative 11/03/2024 10:34 AM CDT [facility] [address] [address] EXAMINATION: Limited Abdomen Ultrasound: RUQ EXAM DATE/TIME: 11/03/2024 8:39 AM REASON FOR EXAM: Liver cirrhosis COMPARISON: 02/18/2024, 03/09/2024 TECHNIQUE: An ultrasound examination of the RUQ was performed FINDINGS: Pancreas: Partially visualized with normal echogenicity. Liver: Slightly heterogeneous echogenicity. No discrete mass or biliary ductal dilatation seen. The liver measures 16 cm in craniocaudal extent. Portal vein: Spectral analysis reveals normal hepatopetal flow. Inferior vena cava: Normal in its viewed portions. Gallbladder: Not visualized Common bile duct: 0.7 centimeters Right kidney: 9.0 cm X 4.1 cm X 4.3 cm.. Normal echogenicity. No hydronephrosis Other findings: No ascites. Procedure Note Ronal Busch MD - 11/03/2024 [facility] [address] [place] [address] EXAMINATION: Limited Abdomen Ultrasound: RUQ EXAM DATE/TIME: 11/03/2024 8:39 AM REASON FOR EXAM: Liver cirrhosis COMPARISON: 02/18/2024, 03/09/2024 TECHNIQUE: An ultrasound examination of the RUQ was performed FINDINGS: Pancreas: Partially visualized with normal echogenicity. Liver: Slightly heterogeneous echogenicity. No discrete mass or biliaryductal dilatation seen. The liver measures 16 cm in craniocaudal extent. Portal vein: Spectral analysis reveals normal hepatopetal flow. Inferior vena cava: Normal in its viewed portions. Gallbladder: Not visualized Common bile duct: 0.7 centimeters Right kidney: 9.0 cm X 4.1 cm X 4.3 cm.. Normal echogenicity. Nohydronephrosis Other findings: No ascites. =====IMPRESSION:===== 1. Subtle heterogeneous echogenicity of the liver. No discrete mass orbiliary ductal dilatation seen. Ordered By: KARYN MICHELLE Interpreted By: Ronal Busch MD, 11/03/2024 10:30 AM us Karyn Michelle APNP ULTRASOUND Final Result * (ABNORMAL) LIVER FIBROSIS PANEL (11/03/2024 9:06 AM CDT) FIBROSIS SCORE 0.78 11/10/2024 3:26 PM CDT [facility] VANESSA ATKINS FIBROSIS INTERPRETATION REPORT 11/10/2024 3:26 PM CDT [facility] VANESSA Dick Comment: severe fibrosis Fibro Test Score (f) Metavir Score f>=0 and f<=0.21 : F0 (no fibrosis) f>0.21 and f<=0.27 : F0-F1 (no fibrosis) f>0.27 and f<=0.31 : F1 (minimal fibrosis) f>0.31 and f<=0.48 : F1-F2 (minimal fibrosis) f>0.48 and f<=0.58 : F2 (moderate fibrosis) f>0.58 and f<=0.72 : F3 (advanced fibrosis) f>0.72 and f<=0.74 : F3-F4 (advanced fibrosis) f>0.74 and f<=1.00 : F4 (severe fibrosis) FIBROSIS STAGE F4 11/10/2024 3:26 PM CDT [facility] VANESSA ATKINS NECROINFLAMMAT ACT SCORE 0.15 11/10/2024 3:26 PM CDT [facility] NECRO[facility] ACT GRADE A0 11/10/2024 3:26 PM CDT [facility] NE[facility] INTERP REPORT 11/10/2024 3:26 PM CDT [facility] VANESSA Dick Comment: no activity ActiTest Score (a) Metavir Score a>=0 and a<=0.17 : A0 (no activity) a>0.17 and a<=0.29 : A0-A1 (no activity) a>0.29 and a<=0.36 : A1 (minimal activity) a>0.36 and a<=0.52 : A1-A2 (minimal activity) a>0.52 and a<=0.60 : A2 (significant activity) a>0.60 and a<=0.62 : A2-A3 (significant activity) a>0.62 and a<=1.00 : A3 (severe activity) ALPHA 2 MACROGLOBULIN 214 106 - 279 mg/dL 11/10/2024 3:26 PM CDT [facility] HAPTOGLOBIN <8(L) 43 - 212 mg/dL 11/10/2024 3:26 PM CDT [facility] Comment: Unusual deviation with median value. APOLIPOPROTEIN A1 157 101 - 198 mg/dL 11/10/2024 3:26 PM CDT [facility] BILIRUBIN TOTAL S/P/B 1.0 0.2 - 1.2 mg/dL 11/10/2024 3:26 PM CDT [facility] GGT 23 3 - 65 U/L 11/10/2024 3:26 PM CDT [facility] ALT 20 6 - 29 U/L 11/10/2024 3:26 PM CDT [facility] REFERENCE ID [id number] 11/10/2024 3:26 PM CDT [facility] NOTE REPORT 11/10/2024 3:26 PM CDT [facility] Comment: The reliability of results is dependent on compliance with the preanalytical and analytical conditions recommended by [facility]. The tests have to be deferred for: acute hemolysis, acute hepatitis, acute inflammation, extra hepatic cholestasis. The advice of a specialist should be sought for interpretation in chronic hemolysis and Gilbert's syndrome. The test interpretation is not validated in liver transplant patients. Isolated extreme values of one of the components should lead to caution in interpreting the results. In case of discordance between a biopsy result and a test, it is recommended to seek the advice of a specialist. The causes of these discordances could be due to a flaw of the test or to a flaw in the biopsy: i.e. a liver biopsy has a 33% variability rate for one fibrosis stage. FibroTest is interpretable for chronic hepatitis B and C, alcoholic and non alcoholic steatosis. ActiTest is interpretable for chronic hepatitis B and C. The performance characteristics have been determined by [facility]. It has not been cleared or approved by the U.S. Food and Drug Administration. Performance characteristics refer to the analytical performance of the test. Tigerlily, the associated logo, [employer] and all associated [employer] cherry are the registered trademarks of [employer]. All third democrat cherry - (R) and (TM) - are the property of their respective owners. (C) [id number] [employer]. All rights reserved. Test performed by [facility] [address] [place] [address] Training Associate: Ceci Haynes MD,PHD,NAZ Test Reported by [facility], [address] [place], [place] Michael Conti M.D., Ph.D., Director of Laboratories , CLIA [id number] 11/03/2024 9:06 AM CDT [facility] Final Result [facility] [id number] [place], [place] , [place] [phone] * ANTI-SMOOTHMUSCLE AB: (11/03/2024 9:06 AM CDT) ACTIN (SMOOTH MUSCLE) AB <20 <20 U 11/08/2024 9:17 PM CDT [facility] HODGE[facility] Comment: Reference Range: <20 U: Negative >or=20 U: Positive Antibodies recognizing actin are the main component of smooth muscle antibodies associated with auto- immune liver disease. Actin antibodies are found in approximately 75% of patients with autoimmune hepatitis (AIH) type 1, approximately 65% of patients with autoimmune cholangitis, approximately 30% of patients with primary biliary cirrhosis and approximately 2% of healthy controls. High values are closely correlated with AIH type 1. Test Performed by [facility], [address] [place], [place] Michael Conti M.D., Ph.D., Director of Laboratories , CLIA [id number] 11/03/2024 9:06 AM CDT [facility] Final Result [facility] [address] [place], [place] , [place] [phone] * (ABNORMAL) PROTIME/INR, VENOUS (11/03/2024 9:06 AM CDT) PROTIME 13.1(H) 9.1 - 12.4 SEC 11/03/2024 9:37 AM CDT [facility] INR 1.1 11/03/2024 9:37 AM CDT [facility] Comment: Recommend INR ranges for Oral Anticoagulant Therapy: Mechanical Cardiac Values 2.5-3.5 All others indication 2.0-3.0 11/03/2024 9:06 AM CDT Karyn [facility] Final Result Performing Organization Address City/[facility]/ZIP Co de Phone Number [facility] [address] [place] [address], [place] [phone] * (ABNORMAL) COMPREHENSIVE METABOLIC PANEL (11/03/2024 9:06 AM CDT) GLUCOSE 104(H) 70 - 99 MG/DL 11/03/2024 9:47 AM CDT [facility] BUN 12 7 - 18 MG/DL 11/03/2024 9:47 AM CDT [facility] CREATININE S/P/B 0.56 0.55 - 1.02 MG/DL 11/03/2024 9:47 AM CDT [facility] SODIUM S/P/B 144 136 - 145 MMOL/L 11/03/2024 9:47 AM [facility] POTASSIUM S/P/B 3.6 3.5 - 5.1 MMOL/L 11/03/2024 9:47 AM [facility] CHLORIDE S/P/B 109(H) 100 - 108 MMOL/L 11/03/2024 9:47 AM [facility] CO2 29.1 21 - 32 MMOL/L 11/03/2024 9:47 AM [facility] CALCIUM S/P/B 8.8 8.5 - 10.1 MG/DL 11/03/2024 9:47 AM [facility] BILIRUBIN TOTAL S/P/B 1.3(H) 0.2 - 1.2 MG/DL 11/03/2024 9:47 AM [facility] TOTAL PROTEIN S/P/B 6.1(L) 6.4 - 8.2 G/DL 11/03/2024 9:47 AM [facility] ALBUMIN S/P/B 3.3(L) 3.4 - 5.0 G/DL 11/03/2024 9:47 AM [facility] AST 36 15 - 37 U/L 11/03/2024 9:47 AM [facility] ALT 25 14 - 55 U/L 11/03/2024 9:47 AM [facility] ALKALINE PHOSPHATASE S/P/B 51 50 - 136 U/L 11/03/2024 9:47 AM [facility] ANION GAP 5.9 5 - 15 MMOL/L 11/03/2024 9:47 AM [facility] BUN CREATININE RATIO 21.4 6 - 26 11/03/2024 9:47 AM [facility] A/G RATIO 1.2 1.0 - 2.0 RATIO 11/03/2024 9:47 AM CDT [facility] GFR ESTIMATE >90 >90 ML/MIN/1.7 3 M2 11/03/2024 9:47 AM CDT [facility] Comment: NOTE: eGFR is not calculated for patients <18 years of age. This is an estimated GFR calculation using the new CKD EPI creatinine equation without race and so does not require a correction factor for race. This estimated GFR should not be used for calculating drug doses. 11/03/2024 9:06 AM CDT us [facility] Final Result [facility] [address] [place] [address], [place] [phone] * (ABNORMAL) CBC, AUTO, NO DIFF (11/03/2024 9:06 AM CDT) WBC 3.78(L) 4.4 - 11.0 x10'3/uL 11/03/2024 9:44 AM CDT [facility] RBC 3.79(L) 4.50 - 5.10 x10'6/uL 11/03/2024 9:44 AM CDT [facility] HGB 12.5 12.3 - 15.3 G/DL 11/03/2024 9:44 AM CDT [facility] HCT 36.7 35.9 - 44.6 % 11/03/2024 9:44 AM CDT [facility] MCV 96.8(H) 80.0 - 96.0 FL 11/03/2024 9:44 AM CDT [facility] MCH 33.0(H) 25.3 - 30.9 PG 11/03/2024 9:44 AM CDT [facility] MCHC 34.1 31.0 - 34.1 G/DL 11/03/2024 9:44 AM CDT [facility] RDW 13.8 12.4 - 15.1 % 11/03/2024 9:44 AM CDT [facility] PLT 75(L) 151 - 353 x10'3/uL 11/03/2024 9:44 AM CDT [facility] MPV 10.2 9.6 - 12.0 FL 11/03/2024 9:44 AM CDT [facility] 11/03/2024 9:06 AM CDT [facility] Final Result [facility] [address] [place] [address], * (ABNORMAL) ALPHA-FETOPROTEIN TUMOR, SERUM (11/03/2024 9:06 AM CDT) Pathologist [facility] AFP TUMOR MARKER 7.0(H) <6.1 ng/mL 11/08/2024 4:26 PM CDT [facility]GE[facility] CASTELAN Comment: The use of AFP as a tumor marker in females is not recommended. This test was performed using the Nicole [place] chemiluminescent method. Values obtained from different assay methods cannot be used interchangeably. AFP levels, regardless of value, should not be interpreted as absolute evidence of the presence or absence of disease. Test performed by [facility] [address] [place] [address] Training Associate: Ceci Haynes MD,PHD,NAZ Test Reported by Patrick Lin, [facility], [address] [place] [address] Michael Conti M.D., Ph.D., Director of Laboratories , CLIA [id number] 11/03/2024 9:06 AM CDT [facility] Final Result [facility] [address] [place] [address], [place] [phone] * MG SCREENING W FLORENCIO RT DIGI (10/27/2024 10:29 AM CDT) Anatomical Region Laterality Modality Breast Right Mammography 10/27/2024 4:49 PM CDT Impressions 10/28/2024 1:32 PM CDT ===== IMPRESSION: ===== 1. Additional imaging. Right. Assessment: ACR BI-RADS 0 - INCOMPLETE: NEEDS ADDITIONAL IMAGING EVALUATION Recommendation: 1:Additional Imaging Right Comments: Ordered By: EMI VARGAS Interpreted By: Juanito Eldridge, 10/27/2024 4:49 PM Narrative 10/28/2024 1:32 [place] [address] EXAMINATION: Digital right screening mammogram with 3-D tomosynthesis EXAM DATE/TIME: 10/27/2024 9:49 AM REASON FOR EXAM: screening Left-sided malignant mastectomy in 2019. Benign right-sided biopsy in 1996. COMPARISON: 08/20/2023. 07/24/2022. 07/13/2021 Technique: Digital screening mammography of the right breast was performed. Right sided MLO and CC projections are obtained. This study was read with the assistance of a computer-aided detection system. Tissue density: The breasts are heterogeneously dense, which may obscure small masses. Findings: Asymmetric tissue within the medial and inferior right breast. Posterior depth. One well-defined nodule. Another adjacent ill-defined asymmetry. No malignant microcalcifications. No skin thickening or nipple retraction. Right axilla is within normal limits. Emi Vargas MD MAMMO Final Result * HEMOGLOBIN, GLYCOSYLATED (09/24/2024) HGB A1C 5.6 % [id number] Emily [place] 09/24/2024 Emi Vargas MD LABORATORY Final Result [id number] [address] [place] [address] [place] [address], * LIPID PANEL (12/19/2023 11:01 AM CDT) CHOLESTEROL 154 <200.0 MG/DL 12/19/2023 2:25 PM CDT [facility] TRIGLYCERIDES 101 <150 MG/DL 12/19/2023 2:25 PM CDT [facility] HDL 46 >40.0 MG/DL 12/19/2023 2:25 PM CDT [facility] LDL (CALCULATED) 88 <100 MG/DL 12/19/19 2:25 PM CDT [facility] NON HDL CHOLESTEROL 108 <130 MG/DL 12/18 2:25 PM CDT [facility] CHOL/HDL RATIO 3.3 0.0 - 4.5 12/19/2023 2:25 PM CDT [facility] VLDL CALCULATION 20 5 - 55 MG/DL 12/19/2023 2:25 PM T [facility] LIPID INTERPRETATION 12/19/2023 2:25 PM T [facility] Comment: NIH CONCENSUS REPORT RECOMMENDATIONS: ADULT CHILD LOW RISK: CHOLESTEROL <200 <170 TRIGLYCERIDE <150 --- HDL >=60 --- LDL <100 <110 BORDERLINE: CHOLESTEROL 200-239 170-199 TRIGLYCERIDE 150-199 --- HDL 40-59 --- LDL 100-159 110-129 HIGH RISK: CHOLESTEROL >=240 >=200 TRIGLYCERIDE >=200 --- HDL <40 --- LDL >=160 >=130 12/19/2023 11:0 1 AM CDT Emi Vargas MD LABORATORY Final Result [facility] [address] [place] [address], * BONE DENSITY/DEXA (08/20/2023 1:34 PM WATER SERVER) Anatomical Region Laterality Modality Bone Bone Density 08/21/2023 6:00 AM WATER SERVER Impressions 08/21/2023 6:01 AM WATER SERVER IMPRESSION: WHO Classification: osteopenia. FRAX: 3.1% chance of hip fracture and 12% chance of major osteoporotic fracture over the next 10 years. Referred By: EMI VARGAS Interpreted By: Chava Dobbs MD, 08/21/2023 6:00 AM Narrative 08/21/2023 6:01 AM WATER SERVER Examination: Bone Density Axial Exam Date/Time: 08/20/2023 1:00 PM Reason For Exam: Age-related osteoporosis without current pathological fracture Comparison: None Findings: DEXA bone densitometry The bone mineral density (BMD) was determined by dual-energy x-ray absorptiometry, the results are as follows: AP Lumbar Spine L1 through L4 BMD Patient (GM/SQCM): 0.884 T-Score (Standard deviations from young adult peak bone density): -1.5 Right femoral neck: BMD Patient (GM/SQCM): 0.615 T-Score (Standard deviations from young adult peak bone density): -2.1 Total Right femur: BMD Patient (GM/SQCM): 0.687 T-Score (Standard deviations from young adult peak bone density): -2.1 Recommendations: All patients should ensure an adequate intake of dietary calcium and vitamin D. The NOF recommend adults under the age of 50 need 1000 mg of calcium and 400-800 IU of vitamin D daily. Effective therapy for the prevention and treatment of osteoporosis include biphosphonates. Follow-up: People with diagnosed cases of osteoporosis or at high risk for fracture should have regular bone mineral density test. For patients eligible for Medicare, routine testing is allowed once every 2 years. Testing frequency can be increased to one year for patients who have rapidly progressing disease, those who are receiving or discontinuing medical therapy to restore bone mass, or have additional risk factors. Procedure Note Chava Dobbs MD - 08/21/2023 Examination: Bone Density Axial Exam Date/Time: 08/20/2023 1:00 PM Reason For Exam: Age-related osteoporosis without current pathological fracture Comparison: None Findings: DEXA bone densitometry The bone mineral density (BMD) was determined bydual-energy x-ray absorptiometry, the results are as follows: AP Lumbar Spine L1 through L4 BMD Patient (GM/SQCM): 0.884 T-Score (Standard deviations from young adult peak bonedensity): -1.5 Right femoral neck: BMD Patient (GM/SQCM): 0.615 T-Score (Standard deviations from young adult peak bonedensity): -2.1 Total Right femur: BMD Patient (GM/SQCM): 0.687 T-Score (Standard deviations from young adult peak bonedensity): -2.1 Recommendations: All patients should ensure an adequate intake of dietary calcium andvitamin D. The NOF recommend adults under the age of 50 need 1000 mg ofcalcium and 400-800 IU of vitamin D daily. Effective therapy for theprevention and treatment of osteoporosis include biphosphonates. Follow-up: People with diagnosed cases of osteoporosis or at high risk for fractureshould have regular bone mineral density test. [facility], routine testing is allowed once every 2 years. Testing frequencycan be increased to one year for patients who have rapidly progressingdisease, those who are receiving or discontinuing medical therapy torestore bone mass, or have additional risk factors. IMPRESSION: WHO Classification: osteopenia. FRAX: 3.1% chance of hip fracture and 12% chance of major osteoporoticfracture over the next 10 years. Referred By: EMI VARGAS Interpreted By: Chava Dobbs MD, 08/21/2023 6:00 AM Emi Vargas MD DEXA Final Result * DIABETIC RETINOPATHY EXAM (NEGATIVE)(SCAN) (09/07/2021) us Documents Scanned SCANNING Final Result Performing Organization Address [facility] Co de Phone Number [facility] * HEPATITIS C ANTIBODY (06/05/2021 9:44 AM CDT) HEPATITIS C AB NON-REACTI VE NON-REACTI VE 06/05/2021 7:51 PM CDT [facility] 06/05/2021 9:44 AM CDT us Tita Russell MD LABORATORY Final Result Performing Organization Address [facility] Co de Phone Number [facility] [address] [place] [address], [place] [phone] * COLONOSCOPY (05/10/2019) us Documents Scanned SCANNING Edited Result - Final from Last 3 Months or Most Recently Relevant to Health Maintenance Insurance MEDICARE [employer] Advance Directives * Full Code (Latest Code Status on File) Date Activated Date Inactivated Comments 04/28/2024 10:44 AM 04/29/2024 2:04 PM * Full Code Date Activated Date Inactivated Comments 04/28/2024 6:35 AM 04/28/2024 10:44 AM * Full Code Date Activated Date Inactivated Comments 04/13/2024 10:52 AM 04/13/2024 5:36 PM Care Teams Fabric Coating Supervisor Relationship Specialty [place] [address] [place] [address] PCP - General FAMILY PRACTICE 10/16/22
--- OUTSIDE RECORDS SUMMARY | 2024-11-16 14:29 | XMS_ITS | Encounter Summary ---
Author Organization [facility] Address [address] [place] [address] Care Team Providers Care Cable Tower Operator Name Role Phone Tita Russell MD Primary Care Provider [phone] Emi Dias MD Primary Care Provider [phone] Rosa M Miguel RN Unavailable [phone] Encounter Details Date Type Department Care Team (Latest Contact Info) Description 06/16/2018 Abstract [facility] Ann Marie Castillo MD Social History Tobacco Use Types Packs/Day Years Used Date Smoking Tobacco: Never Assessed Comments Unknown Sex and Gender Information Value Date Recorded Sex Assigned at Female 09/24/2024 3:02 PM APPLIED TECHNOLOGIST Legal Sex Female 7:04 PM CDT Gender Identity Not on file Sexual Orientation Not on file documented as of this encounter Plan of Treatment Upcoming Encounters Date Type Department Care Team (Late st Contact Info) Description 11/19/2024 9:30 AM CDT Appointment [facility] [address] [place], [place] [id number] [place] [address] [place], [place] [id number] 11/19/2024 10:30 AM CDT Appointment [facility] [address] [place] [address] [place] [address] [facility] [address] [place] [address] 12/17/2024 12:45 PM CDT Office Visit [facility] [address] [place] [phone] Bharath Kessler MD [address] [address] 03/23/2025 9:30 AM CDT Laboratory Only [facility] [address] [address] 03/30/2025 1:40 PM CDT Office Visit [facility] [address] [address] [place] [address] [facility] [address]. [address] [place] [address] documented as of this encounter Visit Diagnoses Not on filedocumented in this encounter Additional Health Concerns Infection Onset Date Last Indicated Resolved Time COVID-19 Rule Out 06/13/2020 06/13/2020 06/16/2020 12:10 PM APPLIED TECHNOLOGIST COVID-19 Confirmed 06/13/2020 06/13/2020 12:34 AM APPLIED TECHNOLOGIST COVID-19 Rule Out 08/22/2021 08/22/2021 08/22/2021 5:01 PM APPLIED TECHNOLOGIST COVID-19 Rule Out 08/22/2021 08/22/2021 08/23/2021 8:36 PM APPLIED TECHNOLOGIST COVID-19 Rule Out 10/22/2022 10/22/2022 10/22/2022 4:09 PM CDT COVID-19 Rule Out 09/13/2023 09/13/2023 09/13/2023 10:22 AM APPLIED TECHNOLOGIST COVID-19 Confirmed 09/13/2023 09/13/2023 12:32 AM APPLIED TECHNOLOGIST COVID-19 Rule Out 03/01/2024 03/01/2024 03/01/2024 10:46 AM CDT documented as of this encounter Care Teams Cable Tower Operator Relationship Specialty Start Date End Date Tita Russell MD PCP - General INTERNAL MEDICINE 05/27/18 10/15/22 [place] [address] [facility]. [address] [place] [address] PCP - General FAMILY PRACTICE 10/16/22 Rosa M Miguel, RN [address] [place] [address] Wire Drawing Die Maker (Ambulatory) REGISTERED NURSE 04/30/24 documented as of this encounter
--- OUTSIDE RECORDS SUMMARY | 2024-11-16 14:29 | XMS_ITS | Clinical Summary ---
Author Organization [facility] [employer] Address [address] [place] [address] Care Team Providers Care Precast Concrete Products Installer Name Role Phone Tita Russell MD Primary Care Provider + [phone] Source Comments [facility],non-owned Affiliates and Associated Physician Practices is amultiple site organization consisting of ambulatory clinics and hospital sitesin [place], [place], [place] and [place]. This disclosure is being madepursuant to the Care Everywhere program and may not contain all information available regarding this patient. Last updated 18.[facility] [employer] Social History Tobacco Use Types Packs/Day Years Used Date Smoking Tobacco: Never Assessed Sex and Gender Information Value Date Recorded Sex Assigned at Not on file Gender Identity Not on file Sexual Orientation Not on file Plan of Treatment Health Maintenance Due Date Last Done Comments BONE DENSITY TESTING 1945 MEDICARE AWV 12 MONTHS 1945 HEPATITIS C SCREENING 11/02/1965 DTAP/TDAP/TD VACCINES (1 - Tdap) 11/06/1966 PNEUMOCOCCAL VACCINE 50+ (1 of 1 - PCV) 11/06/1997 ZOSTER VACCINE (1 of 2) 11/06/1997 Respiratory Syncytial Virus (RSV) Vaccine Pt: or over 60 yrs (1 - 1-dose 75+ series) 11/06/2022 COVID-19 VACCINE ( - 2023-2 5 season) 2024 DEPRESSION SCREENING 08/11/2024 INFLUENZA VACCINE (Season Ended) 2025 04/29/2018, 05/23/2017 HEPATITIS B VACCINE Aged Out No longe r eligible based on patient's age to complete this topic HIB VACCINE Aged Out No longer eligi ble based on patient's age to complete this topic HPV VACCINE Aged Out No longer eligi ble based on patient's age to complete this topic MENINGOCOCCAL (Group B) VACCINE SHARED DECISION-MAKING Aged Out No longer eligible based on patient's age to complete this topic MENINGOCOCCAL GROUPS A/C/Y/W VACCINE Aged Out No longer eligible b ased on patient's age to complete this topic Care Teams Precast Concrete Products Installer Relationship Specialty Start Date End Date Tita Russell MD PCP - General Internal Medicine 03/16/19
--- OUTSIDE RECORDS SUMMARY | 2024-11-16 14:29 | XMS_ITS | Encounter Summary ---
Author Organization [facility] Address [address] [place] [address] Care Team Providers Care Filer Repairer Name Role Phone Tita Russell MD Primary Care Provider + [phone] Encounter Details Date Type Department Care Team (Late st Contact Info) Description 04/13/2021 Lab Requisition [facility] [address] [place] [address] Chava Sin [place] [address] Social History Tobacco Use Types [...] Priority Date/Time Associated Diagnosis Comments DERMATOPATHOLOGY Routine 04/11/2021 12:0 0 AM CDT documented in this encounter Results * DERMATOPATHOLOGY (04/11/2021 12:00 AM CDT) Case Report Dermatopathology Report Case: [id number] Authorizing Provider: Chava Sin MD Collected: 04/11/2021 12:00 AM Ordering Location: [facility] Received: 04/13/2021 11:23 AM Pathologist: Debra Andre MD Specimens: A) - Skin, right nose supra tip B) - Skin, left of midline nasal bridge 9:57 AM T DERMATOPATHOLOGY LABORATORY Final Diagnosis Specimen A. 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 SKIN, left of midline nasal bridge: CHRONIC PERIFOLLICULITIS (L73.8) (see microscopic description) 9:57 AM T DERMATOPATHOLOGY LABORATORY Clinical History A-B: R/O BCC. 9:57 AM T DERMATOPATHOLOGY LABORATORY Gross Description Specimen A: Received is one formalin filled container labeled with the patient's name and designated right nose supra tip. The specimen consists of a shave biopsy measuring [id number], 3s2y1qs & 8l6g0es. Jar 0. Specimen B: Received is one formalin filled container labeled with the patient's name and designated left of midline nasal bridge. The specimen consists of a shave biopsy measuring [id number]. Jar 0. 9:57 AM T DERMATOPATHOLOGY LABORATORY Microscopic Description Specimen A. SKIN, right nose supra tip: Sections reveal superficial portions of an endophytic bland squamous proliferation with sebaceous differentiation. Ki67 immunostain reveals a low proliferation index within lesional cells. Additional deeper sections were obtained and reviewed. COMMENT: The overall histologic features are favored to represent superficial portions of a sebaceous adenoma. Sebaceous neoplasms can be sporadic or associated with Aurea-Alvin Syndrome. While mismatch repair protein immunohistochemistr y can be performed to identify those patients who would benefit from genetic consultation, the literature suggests a targeted approach to screening that incorporates clinical parameters to identify those individuals that would benefit from the analysis (see provided references below). References: 1. Wally BUNCH, et al. A clinical scoring system to identify patients with sebaceous neoplasms at risk for the Aurea-Alvin variant of Gonzalez Syndrome. Marisol Med. 2014 Apr;16(9):711-6. 2. Everardo GILES et al. Appropriate use criteria in dermatopathology: Initial recommendations from the [place] Society of Dermatopathology. J Cutan Pathol. 2018 Mar;45(8):563-580. Specimen B. SKIN, left of midline nasal bridge: Sections show a perifollicular lymphohistiocytic infiltrate. There is no evidence of epithelial dysplasia or malignancy in multiple deeper sections examined. 9:57 AM CDT DERMATOPATHOLOGY LABORATORY Disclaimer An external and internal positive and negative controls are appropriate for the histochemical, immunohistochemical and immunofluorescence stain(s) in this case (if any), except where stated explicitly. The performance characteristics of the stain(s) cited in this report were developed and its performance characteristic determined by the Dermatopathology Laboratory at [facility], directed by Dr. Shantel Foster. These tests need not be, and therefore are not, approved by the [place] Food and Drug Administration. The tests are used for clinical purposes. Billing Codes Specimen Charges Stain Charges 29616 60905 1 1 77617 1 9:57 AM CDT DERMATOPATHOLOGY LABORATORY Embedded Images 9:57 AM CDT DERMATOPATHOLOGY LABORATORY Pathology/Cytology TISSUE SPECIMEN FROM SKIN / Unknown 04/11/2021 04/13/2021 11:23 AM CDT Miscellaneous samples (specimen) TISSUE SPECIMEN FROM SKIN / Unknown 04/11/2021 04/13/2021 11:23 AM CDT Chava Sin MD LAB - PATHOLOGY/CYTO LOGY ORDERABLES DERMATOPATHOLOGY LABORATORY [facility] - Department of Dermatology [address], [address] [phone] documented in this encounter Visit Diagnoses Not on filedocumented in this encounter Care Teams Filer Repairer Relationship Specialty Start Date End Date Tita Russell MD PCP - General Internal Medicine 03/16/19 documented as of this encounter
--- OUTSIDE RECORDS SUMMARY | 2024-11-16 14:29 | XMS_ITS | Encounter Summary ---
Author Organization [facility] Address [address] [place] [address] Care Team Providers Care Cement Kiln Operator Name Role Phone Tita Russell MD Primary Care Provider + [phone] Encounter Details Date Type Department Care Team (Late st Contact Info) Description 03/27/2018 Lab Requisition [facility] [address] [place] [address] Chava [place] [place] [address] Social History Tobacco Use Types [...] Priority Date/Time Associated Diagnosis Comments DERMATOPATHOLOGY Routine 03/26/2018 12:0 0 AM CDT documented in this encounter Results * DERMATOPATHOLOGY (03/26/2018 12:00 AM CDT) Case Report Dermatopathology Report Case: [id number] Authorizing Provider: Chava Sin MD Collected: 03/26/2018 12:00 AM Pathologist: Libia Mcgee MD Received: 03/27/2018 12:05 PM Specimen: Skin, right anterior chest 8 9:56 AM [facility] DERMATOPATHOLOGY LABORATORY Final Diagnosis Specimen A. SKIN, right anterior chest: DERMAL SCAR (L90.5) RESIDUAL TUMOR IS NOT IDENTIFIED 9:56 AM [facility] DERMATOPATHOLOGY LABORATORY Clinical History Bx proven cystic sebaceous adenoma. Previous Bx: [id number]. 9:56 AM [facility] DERMATOPATHOLOGY LABORATORY Gross Description Specimen A: Received is one formalin filled container labeled with the patient's name and designated right anterior chest.The specimen consists of an ellipse measuring [id number] and is oriented with the notch at the 12 o'clock position labeled on the requisition as superior pole. The epidermal surface consists of a centrally located 7x4mm previous biopsy site. The 12 to 6 o'clock margin is inked green. The 6 o'clock to 12 o'clock margin is inked black. The 12 o'clock tip is submitted in cassette 1. The 6 o'clock tip is submitted in cassette 2. The remainder of the ellipse is serially sectioned and submitted in cassettes 3-4. Jar 0. 9:56 AM [facility] DERMATOPATHOLOGY LABORATORY Microscopic Description Specimen A. SKIN, right anterior chest: There are fibroblasts and collagen bundles oriented parallel to the skin surface. There are elongated blood vessels, some of which are oriented perpendicular to the skin surface. There is a normal appearing sebaceous gland at the edge of the dermal scar. No residual tumor is identified. 9:56 AM [facility] DERMATOPATHOLOGY LABORATORY Disclaimer An external and internal positive and negative controls are appropriate for the histochemical, immunohistochemical and immunofluorescence stain(s) in this case (if any), except where stated explicitly. The performance characteristics of the stain(s) cited in this report were developed and its performance characteristic determined by the Dermatopathology Laboratory at [facility]. These tests need not be, and therefore are not, approved by the [place] Food and Drug Administration. The tests are used for clinical purposes. Billing Codes Specimen Charges Stain Charges 00434 1 9:56 AM T DERMATOPATHOLOGY LABORATORY Embedded Images 9:56 AM [facility] DERMATOPATHOLOGY LABORATORY Pathology/Cytolog y TISSUE SPECIMEN FROM SKIN / Unknown 03/26/2018 03/27/2018 12:05 PM CDT Chava Sin MD LAB - PATHOLOGY/CYTO LOGY ORDERABLES DERMATOPATHOLOGY LABORATORY [facility] - Department of Dermatology [address] [place] [address], [address] Lab [address] [phone] documented in this encounter Visit Diagnoses Not on filedocumented in this encounter Care Teams Cement Kiln Operator Relationship Specialty Start Date End Date Tita Russell MD PCP - General Internal Medicine 03/16/19 documented as of this encounter
--- OUTSIDE RECORDS SUMMARY | 2024-11-16 14:29 | XMS_ITS | Encounter Summary ---
Author Organization [facility] Address [address] [place] [address] Care Team Providers Care Automation Mechanic Name Role Phone Tita Russell MD Primary Care Provider + [phone] Encounter Details Date Type Department Care Team (Late st Contact Info) Description 05/09/2022 Lab Requisition [facility] Lab [address] [place] [address] Chava Sin [place] [place] [address] Social History Tobacco Use Types [...] Priority Date/Time Associated Diagnosis Comments DERMATOPATHOLOGY Routine 05/08/2022 12:0 0 AM CDT documented in this encounter Results * DERMATOPATHOLOGY (05/08/2022 12:00 AM CDT) Case Report Dermatopathology Report Case: [id number] Authorizing Provider: Chava Sin MD Collected: 05/08/2022 12:00 AM Ordering Location: [facility] Received: 05/09/2022 12:22 PM Pathologist: Cesia Foster MD Specimen: Skin, right of midline glabella 2 3:57 PM CDT DERMATOPATHOLOGY LABORATORY Final Diagnosis Specimen A. SKIN, right of midline glabella: SEBACEOUS HYPERPLASIA (L73.8) 2 3:57 PM CDT DERMATOPATHOLOGY LABORATORY Clinical History R/O BCC 2 3:57 PM CDT DERMATOPATHOLOGY LABORATORY Gross Description Specimen A: Received is one formalin filled container labeled with the patient's name and designated right of midline glabella. The specimen consists of a shave biopsy measuring 3x3x1 mm. Jar 0. 2 3:57 PM CDT DERMATOPATHOLOGY LABORATORY Microscopic Description Specimen A. SKIN, right of midline glabella: There are prominent sebaceous gland lobules surrounding a dilated hair follicle. 2 3:57 PM CDT DERMATOPATHOLOGY LABORATORY Disclaimer An external and internal positive and negative controls are appropriate for the histochemical, immunohistochemical and immunofluorescence stain(s) in this case (if any), except where stated explicitly. The performance characteristics of the stain(s) cited in this report were developed and its performance characteristic determined by the Dermatopathology Laboratory at [facility], directed by Dr. Shantel Foster. These tests need not be, and therefore are not, approved by the [place] Food and Drug Administration. The tests are used for clinical purposes. Billing Codes Specimen Charges Stain Charges 33403 1 2 3:57 PM CDT DERMATOPATHOLOGY LABORATORY Embedded Images 2 3:57 PM CDT DERMATOPATHOLOGY LABORATORY Pathology/Cytolog y TISSUE SPECIMEN FROM SKIN / Unknown 05/08/2022 05/09/2022 12:22 PM CDT Chava Sin MD LAB - PATHOLOGY/CYTO LOGY ORDERABLES DERMATOPATHOLOGY LABORATORY [facility] - Department of Dermatology [address], [address] [phone] documented in this encounter Visit Diagnoses Not on filedocumented in this encounter Care Teams Automation Mechanic Relationship Specialty Start Date End Date Tita Russell MD PCP - General Internal Medicine 03/16/19 documented as of this encounter
--- OUTSIDE RECORDS SUMMARY | 2024-11-16 14:29 | XMS_ITS | Clinical Summary ---
Author Organization [facility] Administrative Offices Address [address] [place] [address] Care Team Providers Care High [employer] Business Teacher Name Role Phone Emi Dias MD Primary Care Provider [phone] Allergies Active Allergy Reactions Criticality Noted Date Comments Adhesive Tape-Silicones Rash High 03/26/2019 Artificial Tears Ointment Other (See Comments) High 01/02/2010 Burning and redness in the eye Artificial Tears With Lanolin Rash High 01/02/2010 Burning and redness in the eye Azithromycin Rash High 12/08/2009 Cephalexin Rash High 01/02/2010 Chlorhexidine Hives High 07/09/2019 Chlorhexidine Gluconate Hives High 07/09/2019 Ciprofloxacin Rash,Other (See Comments) High 01/02/2010 yeast Clindamycin Rash,Other (See Comments),Shortnes s of Breath/Wheezing High 01/02/2010 Blood in stool Blood in the stool Blood in stool Codeine Nausea and Vomiting,Dizziness High 12/08/2009 Other reaction(s): Fatigue, Nausea Dexpanthenol Rash High 12/08/2009 clay Doxycycline Rash High 01/02/2010 Yeast, patient states she can take the medication if she takes fluconazole 150MG Other reaction(s): Unknown Esomeprazole Diarrhea,Other (See Comments) High 12/08/2009 Blood in stool Esomeprazole Magnesium Diarrhea High 12/08/2009 Esomeprazole Magnesium Diarrhea Low 09/30/2016 Ezetimibe Dizziness High 01/02/2010 weakness weakness Gramicidin D Rash High 03/26/2019 Metaxalone Swelling High 12/08/2009 Throat swells Throat swells Throat swells Throat swells Throat swells Miconazole Shortness of Breath/Wheezing High 01/02/2010 Redness and irritation Miconazole Nitrate Other (See Comments) High 01/02/2010 Redness and irritation Naproxen Diarrhea,Other (See Comments),Shortnes s of Breath/Wheezing,Sw elling High 01/28/2012 Stomach pain Elevated blood pressure Stomach pain Neomycin Rash High 03/26/2019 Kvtwqpnd-Uthlevxlhn-Zfvub yxin Rash High 03/26/2019 Flgprapr-Fshputguwbl-Jgno myxnb Rash High 05/12/2017 Olopatadine Rash Low 05/12/2017 Panthenol Other (See Comments) High 12/08/2009 clay Penicillins Rash,Swelling High 12/08/2009 Polymyxin B Rash High 03/26/2019 Pramoxine Rash High 03/26/2019 Rofecoxib Nausea and Vomiting,Other (See Comments),Shortnes s of Breath/Wheezing High 01/02/2010 Heartburn,tiredness and back pain Heartburn,tiredness and back pain Other reaction(s): Fatigue, Nausea Only, Other (see comment) Heartburn,tiredness and back pain Rosuvastatin Swelling High 01/28/2012 Throat swells closed Soap Rash High 03/26/2019 Zaqcobe-Dxs-Qaz Reductase Inhibitors Dizziness,Swelling High 01/28/2012 Throat swells closed Sulfa (Sulfonamide Antibiotics) Rash Low 01/02/2010 Sulfamethoxazole Itching Low 04/01/2019 Sulfamethoxazole-Trimetho prim Hives,Other (See Comments),Hodges Pravin Syndrome,Rash High 01/02/2010 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 9 Active ferrous sulfate 325 mg (65 mg iron) Tablet, Delayed Release (E.C.) Take 1 Tablet by mouth. Active cyanocobalamin (VITAMIN B-12) 500 mcg tablet Take 500 mcg by mouth daily. Active ascorbic acid (VITAMIN C ORAL) 0 Active multivit with calcium,iron,min (ONE DAILY WOMEN'S ORAL) 0 Active acetaminophen (TYLENOL) 500 mg tablet Take 500 mg by mouth every 6 hours as needed. Active albuterol (PROVENTIL,VENTOL IN) 2.5 mg /3 mL (0.083 %) Solution for Nebulization Take 2.5 mg by inhalation every 6 hours as needed. 0 Active mv,hodan,iron,mn/fo lic acid/chol (MCHG-YOBG-TAITH, PABA, ORAL) 1 Active bwqxpec-H2-eeyk-c opper-jackie 325 mg-12.5 mcg -2.75 mg Tablet 1 Active Blood-Gl & BP Meter,Adult Cuff Device 1 Each by NOT APPLICABLE route. 1 Active OneTouch Delica Plus Lancet 33 gauge USE TO CHECK GLUCOSE ONCE DAILY 1 Active Blood-Glucose Meter Kit 1 Each by NOT APPLICABLE route. 1 Active Magnesium 250 mg Tablet 2 Active ondansetron (ZOFRAN ODT) 4 mg Tablet, Rapid Dissolve Take 4 mg by mouth every 8 hours as needed. 3 Active levothyroxine 75 mcg tablet Take 75 mcg by mouth. 4 Active Cholecalciferol, Vitamin D3, 250 mcg (10,000 unit) Capsule daily. 3 Active albuterol sulfate HFA 90 mcg/actuation aerosol inhaler 2 Puffs every 6 hours as needed. 4 Active vitamin E, dl,tocopheryl acet, (vitamin E, DL,acetate,) 180 mg (400 unit) Capsule Take 400 Units by mouth daily. 3 Active aspirin (ECOTRIN EC) 81 mg Tablet, Delayed Release (E.C.) Take 81 mg by mouth daily. 4 Active clopidogreL (PLAVIX) 75 mg Tablet Take 75 mg by mouth daily. 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 90 Tablet 4 4 Active Active Problems Patient Care Coordination No te Formatting of this note migh t be different from the original. Pt denies any family hx of breast/ovarian ca Primary Care: Emi Dias MD Referring Provider: No referring provider defined for this encounter. Other: Dr. 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 Thrombocytopenia, unspecified 08/20/2019 History of antineoplastic chemotherapy 9 Triple negative malignant neoplasm of breast 04/2019 Carcinoma of upper-outer marlon drant of left breast in female, estrogen receptor positive 03/08/2019 Mastodynia of left breast 03/02/2019 Vitamin D deficiency 01/09/2011 DCIS (ductal carcinoma in situ) of breast 2009 Overview (01/17/2012): Left 10/2007 BCT stage 0 Enlarged lymph nodes 01/02/2010 Overview (01/02/2010): Neck 11/2009 Family history of colon cancer 01/02/2010 Personal history of colonic polyps 01/02/2010 Arthritis Overview (12/08/2009): in back Thyroid disease Osteopenia Eczema Hyperlipidemia Skin cancer of nose Endometrial ca Resolved Problems Problem Noted Date Diagnosed Date Resolved Date Lump in upper outer quadrant of left breast 03/02/2019 06/14/2019 Abnormal mammogram of left breast 02/08/2019 06/14/2019 Abnormal ultrasound of breast 02/08/2019 06/14/2019 Sign and symptom in breast 02/08/2019 1 08/14/2018 Diabetes 01/09/2011 Encounters Date Type Department Care Team Description 10/27/2024 External Device Data STL ABSTRACTION Provider, Abstract 10/20/2024 External Device Data [facility] ABSTRACTION Provider, Abstract 10/19/2024 External Device Data [facility] ABSTRACTION Provider, Abstract 10/19/2024 External Device Data ST[facility] ABSTRACTION Provider, Abstract 10/19/2024 External Device Data ST[facility] ABSTRACTION Provider, Abstract 09/29/2024 External Device Data ST[facility] ABSTRACTION Provider, Abstract 09/07/2024 External Device Data STL ABSTRACTION Provider, Abstract from Last 3 Months Immunizations Immunization Administration Dates Next Due Influenza Seasonal Unspecified Formulation IM Family History Medical History Relation Name Comments Cancer Father 76 Colon Cancer Father 76 Cancer Maternal Uncle Colon Cancer Maternal Uncle Cancer Paternal Aunt Colon Cancer Paternal Aunt Cancer Paternal Grandfather prostate Breast Cancer Neg Hx Ovarian Cancer Neg Hx Relation Name Status Comments Father 76 Maternal Uncle Paternal Aunt Paternal Grandfather prostate Alive Social History Tobacco Use Types Packs/Day Years Used Date Smoking Tobacco: Never Smokeless Tobacco: Never Tobacco Cessation:Counseling Given: Not Answered Alcohol Use Standard Drinks/Week Comments Not Currently 0 (1 standard drink = 0.6 oz pur e alcohol) Comments No Sex and Gender Information Value Date Recorded Sex Assigned at Not on file Legal Sex Female 5:05 AM ELECTRICAL PANEL BUILDER Gender Identity Not on file Sexual Orientation Not on file Occupation Industry Job Start Date Job End Date Not on file Not on file Not on file Not on file Not on file Not on file Not on file Not on file Last Filed Vital Signs Vital Sign Reading Time Taken Comments Blood Pressure 135/69 05/26/2024 10:59 AM CDT Pulse 75 05/26/2024 10:59 AM CDT Temperature 36.6 C (97.8 F) 05/26/2024 10:59 AM CDT Respiratory Rate 16 05/26/2024 10:59 AM CDT Oxygen Saturation 97% 05/26/2024 10:59 AM CDT Inhaled Oxygen Concentration - - Weight 83.5 kg (184 lb) 05/26/2024 10:59 AM CDT Height 157.5 cm (5' 2 ) 01/01/2024 10:55 AM CDT Body Mass Index 33.65 01/01/2024 10:55 AM CDT Plan of Treatment Upcoming Encounters Date Type Department Care Team (Late st Contact Info) Description 11/24/2024 11:30 AM CDT Office Visit [facility] Oncology and Hematology - [place] [address] [place] [address] Karl Singh MD [address] [place] [address] Health Maintenance Due Date Last Done Comments DIABETES ANNUAL FOOT EXAM 11/06/1965 DIABETES MICROALBUMIN ANNUAL SCREEN 11/06/1965 LDL CHOLESTEROL ANNUAL 11/06/1965 Traditional Medicare (ACO) A nnual Wellness Visit 11/06/1966 ZOSTER VACCINE (1 of 2) 11/06/1997 DIABETES ANNUAL RETINAL EXAM 09/07/2022, 09/07/2021, 11/26/2016, Additional history exists RSV VACCINE (60+ or ) (1 - 1-dose 75+ series) 11/06/2022 INFLUENZA VACCINE (#1) 2024 , 05/23/2022, 06/05/2021, Additional history exists COVID-19 Vaccine (2 - 2023-2 5 season) 2024 10/13/2020 DIABETES HBA1C Q 6 MONTHS 09/03/20242023, 09/18/2023, 04/23/2023, Additional history exists DTAP/TDAP/TD VACCINES (4 - T d or Tdap) 03/12/2034 03/12/2024, 11/05/2013, 07/11/2006 Flex Sig/CT Colonography Q 5 years Discontinued 05/26/2015 COLORECTAL SCREENING Discontinued 05/10/2019, 05/10/2019, 05/26/2015, Additional history exists Colorectal Cancer Screening Discontinued PNEUMOCOCCAL VACCINE 50+ YEARS Completed 0 04/23/2023, 05/06/2018, 04/30/2013 OSTEOPOROSIS SCREENING Completed 4, 08/20/2023, 08/20/2023, Additional history exists FIT-DNA Q 3 years Discontinued FIT/FOBT Q 1 year Discontinued Medical Devices Implanted Type Area Dry Placer Machine Operator Device Identifier Shelf Expiration Date Model / Serial / Lot Car Body Inspector Clip Surgiclip Ii Farzad 9.75in [id number] - [id number] Implanted:Qty: 1 on 09/27/2019 by Sujata Sánchez MD at [facility] Clip Left: Axilla [employer] - COVIDIEN 03/10/2024 [id number] / / [id number] Car Body Inspector Clip Surgiclip Ii Farzad 9.75in [id number] - [id number] Implanted:Qty: 1 on 09/27/2019 by Sujata Sánchez MD at [facility] Clip Left: Axilla [employer] - COVIDIEN 06/10/2024 [id number] / / [id number] Hemostatic Surgicel 4x8in 1949 - [id number] Implanted:Qty: 3 on 09/27/2019 by Sujata Sánchez MD at [facility] Hemostatic Left: Breast [employer] 10/09/20231951 / / [id number] Hemostatic Surgicel 4x8in 1949 - [id number] Implanted:Qty: 1 on 11/10/2019 by Sujata Sánchez MD at [facility] Hemostatic Left: Breast [employer] 10/09/20231951 / / [id number] Procedures Procedure Name Priority Date/Time Associated Diagnosis Comments XR DEXA BONE DENSITY AXIAL 1 OR MORE SITES Routine 08/20/2023 11:07 AM ELECTRICAL PANEL BUILDER from Last 3 Months or Most Recently Relevant to Health Maintenance Results * XR DEXA BONE DENSITY AXIAL 1 OR MORE SITES (08/20/2023 11:07 AM ELECTRICAL PANEL BUILDER) Anatomical Region Laterality Modality Other us Abstract Provider DIAGNOSTIC IMAGING ORDERABLES Edited Result - Final from Last 3 Months or Most Recently Relevant to Health Maintenance Insurance MEDICARE PART A AND B [place] MED[place]ARE SUPP RX [place] Medicare Part D [facility] SUPP MEDICARE PART A AND B Advance Directives For more information, please contact: [phone] * Full Code (Latest Code Status on File) Date Activated Date Inactivated Comments 09/27/2019 3:10 PM 09/28/2019 3:37 PM Care Teams High [employer] Business Teacher Relationship Specialty [place] [id number] [address] PCP - General Family Practice 11/12/23
--- OUTSIDE RECORDS SUMMARY | 2024-11-16 14:29 | XMS_ITS | Encounter Summary ---
Author Organization [facility] Address [address] [place] [address] Care Team Providers Care Cant Hooker Name Role Phone Emi Dias MD Primary Care Provider [phone] Encounter Details Date Type Department Care Team (Late st Contact Info) Description 04/01/2019 Chart Note [facility] Radiation Therapy [address] [place] [address] [place] [address] [place] [address] Social History Tobacco Use Types Packs/Day Years Used Date Smoking Tobacco: Never Smokeless Tobacco: Never Alcohol Use Standard Drinks/Week Comments Yes 0 (1 standard drink = 0.6 oz pur e alcohol) Comments No Sex and Gender Information Value Date Recorded Sex Assigned at Not on file Legal Sex Female 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 Gender Identity Not on file Sexual Orientation Not on file Occupation Industry Job Start Date Job End Date Not on file Not on file Not on file Not on file Not on file Not on file Not on file Not on file documented as of this encounter Plan of Treatment Upcoming Encounters Date Type Department Care Team (Late st Contact Info) Description 11/24/2024 11:30 AM CDT Office Visit [facility] Oncology and Hematology - [place] [address] [place] [address] Karl Singh MD [address] [facility] [address] [place] [address] documented as of this encounter Visit Diagnoses Not on filedocumented in this encounter Care Teams Cant Hooker Relationship Specialty [place] [id number] [address] PCP - General Family Practice 11/12/23 documented as of this encounter
[2024-11-17 18:53] LABS: CA 15-3 19 U/mL (<32)
== END 2024-11-16 13:07 | disposition home or self-care (01) ==
LOC: ANHLAB 13:08
PROVIDERS: Visit Provider Internal Medicine Hematology & Oncology
DX: C50.412 Malignant neoplasm of upper-outer quadrant of left female breast (principal); Z17.0 Estrogen receptor positive status [ER+]
CPT/HCPCS: 36415; 80053; 85025; 85055; 86300

== ENCOUNTER 2025-04-13 00:18 | Day surgery (SDC) | payer MEDICARE, SELFPAY ==
[2025-03-29 14:01] VITALS: BMI 33.6
[2025-04-13 09:15] VITALS: BP 159/56; PULSE 89; RESP 18; TEMP 36.1; O2SAT 97; BMI 33.8
[2025-04-13] MEDS: LACTATED RINGERS 1,000 ML 150 ML IV CONT (09:26)
[2025-04-13] MEDS: VANCOMYCIN 1,250 MG/NS 250 ML 1,250 MG/250 ML BAG 166.67 MG IVPB (09:28)
--- NOTE | 2025-04-13 09:39 | WPDANESEPPF ---
Anes - Initial Pre Proc Eval Procedure: Operation Date: 04/13/25 10:30 Proposed Procedures p EGD & Screening Colonoscopy - Micah Egan MD Date/Time: 04/13/25 09:39 Surgeon: Micah Egan MD Pre Op Diagnosis: Personal history of colon polyps, unspecified Patient Data Age: 79 Gender: F Height: 1.57 m Weight: 83.9 kg Last Vital Signs Temp 36.1 C L 04/13/25 09:15 Pulse 89 04/13/25 09:15 Resp 18 04/13/25 09:15 BP 159/56 H 04/13/25 09:15 Pulse Ox 97 04/13/25 09:15 O2 Del Method Room Air 04/13/25 09:15 Allergies Allergy/AdvReac Type Severity Reaction Status Date / Time adhesive tape Allergy Intermediate Rash Verified 04/13/25 09:13 azithromycin Allergy Intermediate Swelling Verified 04/13/25 09:13 of Lip/Tongue/Throat cephalexin Allergy Mild Rash Verified 04/13/25 09:13 clindamycin Allergy Mild BLOOD IN Verified 04/13/25 09:13 STOOL metaxalone Allergy Mild Swelling Verified 04/13/25 09:13 of Lip/Tongue/Throat sulfamethoxazole Allergy Mild Rash Verified 04/13/25 09:13 trimethoprim Allergy Mild Rash Verified 04/13/25 09:13 venlafaxine Allergy Mild Back Pain Verified 04/13/25 09:13 carboxymethylcellulose Allergy Unknown Other Verified 04/13/25 09:13 sodium (From Refresh Plus) ezetimibe Allergy Unknown Dizziness Verified 04/13/25 09:13 olopatadine Allergy Unknown Other Verified 04/13/25 09:13 omeprazole Allergy Unknown Swelling Verified 04/13/25 09:13 Penicillins Allergy Unknown Rash Verified 04/13/25 09:13 Xerfvbk-NEM-TbT Reductase Allergy Unknown Dizziness Verified 04/13/25 09:13 Inhibitor (Lietemh-Wki-Tba Reductase Inhibitor) ciprofloxacin AdvReac Mild Other Verified 04/13/25 09:13 codeine AdvReac Mild Nausea Verified 04/13/25 09:13 esomeprazole AdvReac Mild Diarrhea Verified 04/13/25 09:13 Home Medications ?Medication ?Instructions ?Recorded ?Confirmed ?Type acetaminophen 500 mg tablet 500 mg PO Q4-6H PRN Pain 05/25/19 03/29/25 History calcium carbonate-vitamin D3 600 600 tablet PO DAILY 05/25/19 04/13/25 History mg-125 unit tablet (Calcium) cholecalciferol (vitamin D3) 1,250 50,000 unit PO WEEKLY 05/25/19 04/13/25 History mcg (50,000 unit) capsule levothyroxine 112 mcg capsule 112 mcg PO DAILY 05/25/19 04/13/25 History cyanocobalamin (vitamin B-12) 1,000 mcg PO DAILY 07/02/19 04/13/25 History 1,000 mcg capsule ferrous sulfate 325 mg (65 mg 325 mg PO DAILY 07/02/19 04/13/25 History iron) tablet metformin 500 mg tablet 500 mg PO QPM 11/05/19 04/13/25 History ascorbic acid (vitamin C) 500 mg 500 mg PO DAILY 04/12/20 04/13/25 History tablet (Vitamin C) ascorbic acid 7.5 mg-vit E 7.5 1 tablet PO DAILY 04/12/20 04/13/25 History unit-biotin 1,250 mcg chewable tablet (Hair,Skin,Nails with Biotin) multivitamin 1 tablet PO DAILY 04/12/20 04/13/25 History tamoxifen 20 mg tablet 20 mg PO DAILY 04/07/24 04/13/25 History aspirin 81 mg tablet,delayed 81 mg PO DAILY 10/22/24 04/13/25 History release (Adult Low Dose Aspirin) Laboratory Tests 04/13/25 09:32 POC Capillary Glucose 111 H mg/dl (65-105) Patient hx anesthesia problems: none Family hx anesthesia problems: none Results Review: All pre-operative results and documents have been reviewed as part of the pre-operative evaluation. 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, estrogen receptor positive Surgical History Surgical History (Updated 04/12/25 @ 13:18 by Fazal Pittman, ) S/P TAVR (transcatheter aortic valve replacement) 2023 History of mastectomy Family History Family History Father Carcinoma of colon Mother Family history of Alzheimer's disease Sibling Family history of seizure disorder Social History Social History Smoking status: Never smoker Alcohol intake: current Living arrangements: alone Spiritual care concerns: No Anes - Eval Final PreProcedure Day of Procedure 04/13/25 09:39 Patient weight: obese Heart: regular rate and rhythm Lungs: clear to auscultation Airway: Mallampati scale class II Neurological: alert and oriented Last oral intake: >/= 8 hours ASA classification: IV Emergent: no Anesthetic plan: proceed Anesthesia type and monitoring: general GIVS and standard monitoring Results Review: All pre-operative results and documents have been reviewed as part of the pre-operative evaluation. Informed Consent: The patient's anesthetic plan and its attendant risks and benefits were discussed with the patient/family/POA. Questions were solicited and answers provided to the satisfaction of the patient/family/POA.
--- NOTE | 2025-04-13 09:59 | PM.HPGS ---
History of Present Illness History of Present Illness Consent: Risks, benefits, and alternatives have been discussed and questions answered. Patient agrees to proceed with procedure. Chief complaint: Personal history of colon polyps, unspecified Narrative: Kelley Coleman is a 79 year old female with mash cirrhosis, will do EGD to check if EV. 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, estrogen receptor positive Surgical History Surgical History (Updated 04/12/25 @ 13:18 by Fazal Pittman, ) S/P TAVR (transcatheter aortic valve replacement) 2023 History of mastectomy Family History Family History Father Carcinoma of colon Mother Family history of Alzheimer's disease Sibling Family history of seizure disorder Social History Social History Smoking status: Never smoker Alcohol intake: current Living arrangements: alone Spiritual care concerns: No Meds Home Medications and Allergies Home Medications ?Medication ?Instructions ?Recorded ?Confirmed ?Type acetaminophen 500 mg tablet 500 mg PO Q4-6H PRN Pain 05/25/19 03/29/25 History calcium carbonate-vitamin D3 600 600 tablet PO DAILY 05/25/19 04/13/25 History mg-125 unit tablet (Calcium) cholecalciferol (vitamin D3) 1,250 50,000 unit PO WEEKLY 05/25/19 04/13/25 History mcg (50,000 unit) capsule levothyroxine 112 mcg capsule 112 mcg PO DAILY 05/25/19 04/13/25 History cyanocobalamin (vitamin B-12) 1,000 mcg PO DAILY 07/02/19 04/13/25 History 1,000 mcg capsule ferrous sulfate 325 mg (65 mg 325 mg PO DAILY 07/02/19 04/13/25 History iron) tablet metformin 500 mg tablet 500 mg PO QPM 11/05/19 04/13/25 History ascorbic acid (vitamin C) 500 mg 500 mg PO DAILY 04/12/20 04/13/25 History tablet (Vitamin C) ascorbic acid 7.5 mg-vit E 7.5 1 tablet PO DAILY 04/12/20 04/13/25 History unit-biotin 1,250 mcg chewable tablet (Hair,Skin,Nails with Biotin) multivitamin 1 tablet PO DAILY 04/12/20 04/13/25 History tamoxifen 20 mg tablet 20 mg PO DAILY 04/07/24 04/13/25 History aspirin 81 mg tablet,delayed 81 mg PO DAILY 10/22/24 04/13/25 History release (Adult Low Dose Aspirin) Allergies Allergy/AdvReac Type Severity Reaction Status Date / Time adhesive tape Allergy Intermediate Rash Verified 04/13/25 09:13 azithromycin Allergy Intermediate Swelling Verified 04/13/25 09:13 of Lip/Tongue/Throat cephalexin Allergy Mild Rash Verified 04/13/25 09:13 clindamycin Allergy Mild BLOOD IN Verified 04/13/25 09:13 STOOL metaxalone Allergy Mild Swelling Verified 04/13/25 09:13 of Lip/Tongue/Throat sulfamethoxazole Allergy Mild Rash Verified 04/13/25 09:13 trimethoprim Allergy Mild Rash Verified 04/13/25 09:13 venlafaxine Allergy Mild Back Pain Verified 04/13/25 09:13 carboxymethylcellulose Allergy Unknown Other Verified 04/13/25 09:13 sodium (From Refresh Plus) ezetimibe Allergy Unknown Dizziness Verified 04/13/25 09:13 olopatadine Allergy Unknown Other Verified 04/13/25 09:13 omeprazole Allergy Unknown Swelling Verified 04/13/25 09:13 Penicillins Allergy Unknown Rash Verified 04/13/25 09:13 Owilpsi-IJE-FcY Reductase Allergy Unknown Dizziness Verified 04/13/25 09:13 Inhibitor (Wfdgnzn-Udi-Nxl Reductase Inhibitor) ciprofloxacin AdvReac Mild Other Verified 04/13/25 09:13 codeine AdvReac Mild Nausea Verified 04/13/25 09:13 esomeprazole AdvReac Mild Diarrhea Verified 04/13/25 09:13 Vital Signs Vital Signs - 24 hr 04/13/25 09:15 Temperature 97 F L Pulse Rate 89 Respiratory Rate 18 Blood Pressure 159/56 H Pulse Oximetry 97 Oxygen Delivery Room Air Exam Const: General: comfortable and no acute distress HENMT: Face/Nose/Sinus: Normal nares present Eyes: General: appearance normal, both eyes and all related structures Neck: Neck: no JVD Resp: Auscultation: clear to auscultation bilaterally Cardio: Rate: regular rate Rhythm: regular rhythm GI: Inspection: non-distended GI Palp: Yes Soft to palpation Skin: General skin exam: normal color Neuro: Speech: normal speech Extrem: General: normal to inspection Psych: Mental Status: mental status grossly normal Assessment and Plan Assessment and plan (1) Cirrhosis of liver: Code(s): K74.60 - Unspecified cirrhosis of liver Status: Acute Assessment and Plan: egd (2) Hx of adenomatous colonic polyps: Code(s): Z86.010 - Personal history of colon polyps Status: Acute Assessment and Plan: colonoscopy
--- NOTE | 2025-04-13 10:06 | SUR.OPER ---
EGD: [id number] Colon: [id number]
--- NOTE | 2025-04-13 10:23 | S_PTH ---
PATIENT: Kelley Coleman LOC: [facility] Christy#:[id number] AGE/SX: 79/F ROOM: RE04/13/[address]: Micah Egan MD : 1945 BED: DIS: 04/13/2025 SPEC #: [id number] RECD: 04/13/25 10:49 STATUS: AKUA DESHPANDE #: [id number] MEHRDAD: 04/13/25 10:[address]: Micah Egan DEPT: [facility] Surgical RECD BY: Elizabeth Guardado ENTERED: 04/13/25 10:50 SP TYPE: Surgical OTHR DR: Emi DiasMD Tissues: A - Colon Polypectomy Procedures: Hematoxylin and Eosin Stain Gross and Microscopic Level 4
[2025-04-13 10:25] VITALS: BP 126/39; PULSE 73; RESP 20; O2SAT 98
[2025-04-13 10:35] VITALS: BP 134/41; PULSE 73; RESP 20; O2SAT 100
[2025-04-13 10:46] VITALS: BP 132/52; PULSE 70; RESP 20; O2SAT 100
== END 2025-04-13 11:21 | disposition home or self-care (01) ==
PROVIDERS: PCP Family Medicine; Referring Provider Nurse Practitioner; Visit Provider Internal Medicine Gastroenterology
PROC: 0DJ08ZZ Inspection of Upper Intestinal Tract, Via Natural or Artificial Opening Endoscopic (ICD-10-PCS; CPT 45378; principal; 2025-04-13 10:30)
DX: Z12.11 Encounter for screening for malignant neoplasm of colon (principal); D12.2 Benign neoplasm of ascending colon; K57.30 Diverticulosis of large intestine without perforation or abscess without bleeding; K64.4 Residual hemorrhoidal skin tags; K74.60 Unspecified cirrhosis of liver; I85.10 Secondary esophageal varices without bleeding; E11.9 Type 2 diabetes mellitus without complications; E66.9 Obesity, unspecified; Z68.33 Body mass index [BMI] 33.0-33.9, adult
CPT/HCPCS: 45385; 43235; 82948; 88305; J3373; J7120

== ENCOUNTER 2025-05-25 09:45 | Outpatient (CLI) | payer MEDICARE, SELFPAY ==
--- NOTE | ~2025-05-25 | MMUS_ITS ---
EXAMINATION: US breast RT limited, MM diagnostic candelario RT w artur HISTORY: Six-month follow-up. TECHNIQUE: Additional 3-D tomosynthesis images of the right breast were performed and synthetic 2-D images were generated. CAD analysis was submitted and interpreted. High resolution right breast ultrasound was performed. COMPARISON: Mammograms from 11/19/2024, 10/27/2024 and 03/09/2020 BREAST PARENCHYMAL COMPOSITION: The right breast is heterogeneously dense, which may obscure small masses. FINDINGS: MAMMOGRAPHIC FINDINGS: No suspicious masses or areas of architectural distortion. Probably benign grouping of calcifications in the upper inner quadrant of the right breast, posterior depth. ULTRASOUND: There is a 4 x 6 x 3 mm wider than tall is referred hypoechoic cyst versus solid mass in the right retroareolar region at the 3:00 position. The finding is wider than tall. Margins are well-circumscribed. No posterior acoustic shadowing. No internal color Doppler flow. The finding is probably benign. There is a 3 x 2 x 1 mm hypoechoic cyst versus solid mass in the right breast at 6:00 position 4 cm in the middle depth. The finding is wider than tall. Margins are well-circumscribed. No posterior acoustic shadowing. No internal color Doppler flow. Findings probably benign. IMPRESSION: 1. Probably benign findings in both breasts. A diagnostic right breast mammogram and a diagnostic right breast ultrasound in 6 months is recommended. BI-RADS 3-Probably benign-Short interval follow-up suggested. Reviewed, dictated and finalized at location Q. IMPRESSION: 1. Probably benign findings in both breasts. A diagnostic right breast mammogra m and a diagnostic right breast ultrasound in 6 months is recommended. BI-RADS 3-Probably benign-Short interval follow-up suggested.
--- OUTSIDE RECORDS SUMMARY | 2025-05-25 11:09 | XMS_ITS | Encounter Summary ---
Author Organization [facility] Address 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 Gender Identity Not on file Sexual Orientation Not on file documented as of this encounter Plan of Treatment Upcoming Encounters Date Type Department Care Team (Late st Contact Info) Description 06/01/2025 11:30 AM CDT Office Visit [facility] Oncology and Hematology - [place] [address] [facility] [address] [place] [address] Karl Singh MD [address] [facility] [address] [place] [address] documented as of this encounter Visit Diagnoses Diagnosis Other specified disorders of uterus, not elsewhere classified- Primary documented in this encounter Care Teams Drying And Winding Supervisor Relationship Specialty [place] [address] [address] [facility] [address] [place] [address] PCP - General Family Practice 11/12/23 documented as of this encounter
--- OUTSIDE RECORDS SUMMARY | 2025-05-25 11:09 | XMS_ITS | Encounter Summary ---
Author Organization [facility] Address [address] [facility] [place] [address] Care Team Providers Care Thoroughbred Horse Farm Manager Name Role Phone Tita Russell MD Primary Care Provider + [phone] Encounter Details Date Type Department Care Team (Late st Contact Info) Description 05/09/2022 Lab Requisition [facility] DermPath Lab [address] [place] [address] [place] [address] Social History Tobacco Use Types Packs/Day Years Used Date Smoking Tobacco: Never Assessed Comments Unknown Sex and Gender Information Value Date Recorded Sex Assigned at Not on file Legal Sex Female 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 Gender Identity Not on file Sexual Orientation Not on file documented as of this encounter Plan of Treatment Not on file documented as of this encounter Procedures Procedure Name Priority Date/Time Associated Diagnosis Comments DERMATOPATHOLOGY Routine 05/08/2022 12:0 0 AM CDT documented in this encounter Results * DERMATOPATHOLOGY (05/08/2022 12:00 AM CDT) Case Report Dermatopathology Report Case: [id number] Authorizing Provider: Chava Sin MD Collected: 05/08/2022 12:00 AM Ordering Location: [facility] DermPath Lab Received: 05/09/2022 12:22 PM Pathologist: Cesia Foster MD Specimen: Skin, right of midline glabella 2 3:57 PM CDT DERMATOPATHOLOGY LABORATORY Final Diagnosis Specimen A. SKIN, right of midline glabella: SEBACEOUS HYPERPLASIA (L73.8) 2 3:57 PM CDT DERMATOPATHOLOGY LABORATORY at 1557 CDT Clinical History R/O BCC 2 3:57 PM [...] characteristic determined by the Dermatopathology Laboratory at [facility], directed by Dr. Shantel Foster. These tests need not be, and therefore are not, approved by the [place] Food and Drug Administration. The tests are used for clinical purposes. Billing Codes Specimen Charges Stain Charges 30933 1 2 3:57 PM CDT DERMATOPATHOLOGY LABORATORY Embedded Images 2 3:57 PM CDT DERMATOPATHOLOGY LABORATORY Pathology/Cytolog y TISSUE SPECIMEN FROM SKIN / Unknown 05/08/2022 05/09/2022 12:22 PM CDT Chava Sin MD LAB - PATHOLOGY/CYTOLOGY ORD ERABLES Final Result DERMATOPATHOLOGY LABORATORY [facility] - Department of Dermatology [address], [address] [phone] documented in this encounter Visit Diagnoses Not on filedocumented in this encounter Care Teams Thoroughbred Horse Farm Manager Relationship Specialty Start Date End Date Tita Russell MD PCP - General Internal Medicine 03/16/19 documented as of this encounter
--- OUTSIDE RECORDS SUMMARY | 2025-05-25 11:09 | XMS_ITS | Encounter Summary ---
Author Organization [facility] Address [address] [facility] [place] [address] Care Team Providers Care Die Set Up Worker Name Role Phone Tita Russell MD Primary Care Provider + [phone] Encounter Details Date Type Department Care Team (Late st Contact Info) Description 04/13/2021 Lab Requisition [facility] DermPath Lab [address] [place] [address] [place] [place] [address] Social History Tobacco Use Types Packs/Day Years Used Date Smoking Tobacco: Never Assessed Comments Unknown Sex and Gender Information Value Date Recorded Sex Assigned at Not on file 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 Sex Female 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 Gender Identity Not on file Sexual Orientation Not on file documented as of this encounter Plan of Treatment Not on file documented as of this encounter Procedures Procedure Name Priority Date/Time Associated Diagnosis Comments DERMATOPATHOLOGY Routine 04/11/2021 12:0 0 AM CDT documented in this encounter Results * DERMATOPATHOLOGY (04/11/2021 12:00 AM CDT) Case Report Dermatopathology Report Case: [id number] Authorizing Provider: Chava Sin MD Collected: 04/11/2021 12:00 AM Ordering Location: [facility] DermPath Lab Received: 04/13/2021 11:23 AM [...] PERIFOLLICULITIS (L73.8) (see microscopic description) 9:57 AM CDT DERMATOPATHOLOGY LABORATORY at 0957 T Clinical History A-B: R/O BCC. 9:57 AM CDT DERMATOPATHOLOGY LABORATORY Gross Description Specimen A: Received is one formalin filled container labeled with the patient's name and designated right nose supra tip. The specimen consists of a shave biopsy measuring [id number], 7x2q5xt & 9y5o4bv. Jar 0. Specimen B: Received is one formalin filled container labeled with the patient's name and designated left of midline nasal bridge. The specimen consists of a shave biopsy measuring 8s6x4jd. Jar 0. 9:57 AM CDT DERMATOPATHOLOGY LABORATORY Microscopic Description Specimen A. [...] neoplasms can be sporadic or associated with [place]-Alvin Syndrome. While mismatch repair protein immunohistochemistr y [...] variant of Gonzalez Syndrome. Marisol Med. 2014 Sept;16(9):711-6. 2. Everardo GILES, et al. Appropriate use criteria in dermatopathology: Initial recommendations from the [place] Society of Dermatopathology. J Cutan Pathol. 2018 [...] determined by the Dermatopathology Laboratory at [facility], directed by Dr. Shantel Foster. These tests need not be, and therefore are not, approved by the [place] Food and Drug Administration. The tests are used for clinical purposes. Billing Codes Specimen Charges Stain Charges 37715 56142 1 1 86510 1 9:57 AM CDT DERMATOPATHOLOGY LABORATORY Embedded Images 9:57 AM CDT DERMATOPATHOLOGY LABORATORY Pathology/Cytology TISSUE SPECIMEN FROM SKIN / Unknown 04/11/2021 04/13/2021 11:23 AM CDT Miscellaneous samples (specimen) TISSUE SPECIMEN FROM SKIN / Unknown 04/11/2021 04/13/2021 11:23 AM CDT Chava Sin MD LAB - PATHOLOGY/CYTOLOGY ORD ERABLES Final Result DERMATOPATHOLOGY LABORATORY [facility] - Department of Dermatology [facility] Medicine [address] [place] [address], [address] [phone] documented in this encounter Visit Diagnoses Not on filedocumented in this encounter Care Teams Die Set Up Worker Relationship Specialty Start Date End Date Tita Russell MD PCP - General Internal Medicine 03/16/19 documented as of this encounter
--- OUTSIDE RECORDS SUMMARY | 2025-05-25 11:09 | XMS_ITS | Encounter Summary ---
Author Organization [facility] Address [address] [place] [address] Care Team Providers Care Flat Polisher Name Role Phone Unavailable Primary Care Provider Unavailabl e Encounter Details Date Type Department Care Team (Latest Contact Info) Description 07/24/1922 10:55 AM BELT MEASURER - 07/24/1922 11:59 PM BELT MEASURER Hospital Encounter [facility] Kash Antunez [address] [place] [phone] [facility], External Provider [address] [place] [address] Discharge Disposition: Home or Self Care Social History Tobacco Use Types Packs/Day Years Used Date Smoking Tobacco: Never Assessed Comments Unknown Sex and Gender Information Value Date Recorded Sex Assigned at Not on file Legal Sex Female 5:05 AM BELT MEASURER Gender Identity Not on file Sexual Orientation Not on file documented as of this encounter Plan of Treatment Upcoming Encounters Date Type Department Care Team (Late st Contact Info) Description 06/01/2025 11:30 AM CDT Office Visit [facility] Oncology and Hematology - [place] [address] [facility] [address] [place] [address] Karl Singh MD [address] [facility] [address] [place] [address] documented as of this encounter Procedures Procedure Name Priority Date/Time Associated Diagnosis Comments MAMMO PRIOR STUDY Routine 07/24/1922 10: 55 AM BELT MEASURER Follow-up exam documented in this encounter Results * MAMMO PRIOR STUDY (07/24/1922 10:55 AM BELT MEASURER) Narrative 08/14/2022 10:52 AM BELT MEASURER This exam was auto finalized to allow images to be scanned to PACS. External Provider [facility] DIAGNOSTIC IMAGING ORDER ANTONIO Final Result documented in this encounter Visit Diagnoses Diagnosis Follow-up exam Unspecified follow-up examination documented in this encounter
--- OUTSIDE RECORDS SUMMARY | 2025-05-25 11:09 | XMS_ITS | Encounter Summary ---
Author Organization [facility] Address [address] [facility] [place] [address] Care Team Providers Care Apprentice Cook Name Role Phone Tita Russell MD Primary Care Provider + [phone] Encounter Details Date Type Department Care Team (Late st Contact Info) Description 03/27/2018 Lab Requisition [facility] DermPath Lab [address] [place] [address] Chava Sin [place] [address] Social History Tobacco Use Types Packs/Day Years Used Date Smoking Tobacco: Never Assessed Comments Unknown Sex and Gender Information Value Date Recorded Sex Assigned at Not on file 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 Gender Identity Not on file Sexual Orientation Not on file documented as of this encounter Plan of Treatment Not on file documented as of this encounter Procedures Procedure Name Priority Date/Time Associated Diagnosis Comments DERMATOPATHOLOGY Routine 03/26/2018 12:0 0 AM CDT documented in this encounter Results * DERMATOPATHOLOGY (03/26/2018 12:00 AM CDT) Case Report Dermatopathology Report Case: [id number] Authorizing Provider: Chava Sin MD Collected: 03/26/2018 12:00 AM Pathologist: Libia Mcgee MD Received: 03/27/2018 12:05 PM Specimen: Skin, right anterior chest 9:56 AM CDT DERMATOPATHOLOGY LABORATORY Final Diagnosis Specimen A. SKIN, right anterior chest: DERMAL SCAR (L90.5) RESIDUAL TUMOR IS NOT IDENTIFIED 9:56 AM T DERMATOPATHOLOGY LABORATORY at 0956 CDT Clinical History Bx proven cystic sebaceous adenoma. Previous Bx: [id number]. 9:56 AM T DERMATOPATHOLOGY LABORATORY Gross Description Specimen A: Received is one formalin filled container labeled with the patient's name and designated right anterior chest.The specimen consists of an ellipse measuring [id number] and is oriented with the notch at [...] in cassettes 3-4. Jar 0. 9:56 AM T DERMATOPATHOLOGY LABORATORY Microscopic Description Specimen A. SKIN, right anterior chest: There are fibroblasts and collagen bundles oriented parallel to the skin surface. There are elongated blood vessels, some of which are oriented perpendicular to the skin surface. There is a normal appearing sebaceous gland at the edge of the dermal scar. No residual tumor is identified. 9:56 AM T DERMATOPATHOLOGY LABORATORY Disclaimer An external and internal positive and negative controls are appropriate for the histochemical, immunohistochemical and immunofluorescence stain(s) in this case (if any), except where stated explicitly. The performance characteristics of the stain(s) cited in this report were developed and its performance characteristic determined by the Dermatopathology Laboratory at [facility]. These tests need not be, and therefore are not, approved by the [place] Food and Drug Administration. The tests are used for clinical purposes. Billing Codes Specimen Charges Stain Charges 59605 1 9:56 AM CDT DERMATOPATHOLOGY LABORATORY Embedded Images 9:56 AM CDT DERMATOPATHOLOGY LABORATORY Pathology/Cytolog y TISSUE SPECIMEN FROM SKIN / Unknown 03/26/2018 03/27/2018 12:05 PM CDT Chava Sin MD LAB - PATHOLOGY/CYTOLOGY ORD ERABLES Final Result DERMATOPATHOLOGY LABORATORY [facility] - Department of Dermatology [address] [place] [address], 5th Floor Lab [address] [phone] documented in this encounter Visit Diagnoses Not on filedocumented in this encounter Care Teams Apprentice Cook Relationship Specialty Start Date End Date Tita Russell MD PCP - General Internal Medicine 03/16/19 documented as of this encounter
--- OUTSIDE RECORDS SUMMARY | 2025-05-25 11:09 | XMS_ITS | Encounter Summary ---
Author Organization [facility] Address [address] [facility] [place] [address] Care Team Providers Care Quality Assurance Inspector Name Role Phone Tita Russell MD Primary Care Provider + [phone] Encounter Details Date Type Department Care Team (Late st Contact Info) Description 03/04/2018 Lab Requisition [facility] DermPath Lab [address] [place] [address] [place] [address] Social History Tobacco Use Types Packs/Day Years Used Date Smoking Tobacco: Never Assessed Comments Unknown Sex and Gender Information Value Date Recorded Sex Assigned at Not on file Legal Sex Female 6:01 PM NEWS EDITOR Gender Identity Not on file Sexual Orientation Not on file documented as of this encounter Plan of Treatment Not on file documented as of this encounter Procedures Procedure Name Priority Date/Time Associated Diagnosis Comments DERMATOPATHOLOGY Routine 03/03/2018 12:0 0 AM CDT documented in this encounter Results * DERMATOPATHOLOGY (03/03/2018 12:00 AM CDT) Case Report Dermatopathology Report Case: [id number] Authorizing Provider: Chava Sin MD Collected: 03/03/2018 12:00 AM Pathologist: Cesia Foster MD Received: 03/04/2018 11:58 AM Specimen: Skin, right anterior chest 8 4:57 PM CDT DERMATOPATHOLOGY LABORATORY Final Diagnosis Specimen A. 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 4:57 PM CDT DERMATOPATHOLOGY LABORATORY Gross Description Specimen A: Received is one formalin filled container labeled with the patient's name and designated right anterior chest. The specimen consists of a shave biopsy measuring 5w5y2is. Jar 0. 4:57 PM T DERMATOPATHOLOGY LABORATORY Microscopic Description Specimen A. SKIN, right anterior chest: Sections show well-circumscribed lobules composed of central mature sebocytes and a smaller component of peripheral basaloid cells. COMMENT: Sebaceous neoplasms can be sporadic or associated with [place]-Alvin syndrome. At the request of the clinician [...] purposes. Billing Codes Specimen Charges Stain Charges 18760 1 8 4:57 PM CDT DERMATOPATHOLOGY LABORATORY Embedded Images 8 4:57 PM CDT DERMATOPATHOLOGY LABORATORY Pathology/Cytolog y TISSUE SPECIMEN FROM SKIN / Unknown 03/03/2018 03/04/2018 11:58 AM CDT us Chava Sin MD LAB - PATHOLOGY/CYTOLOGY ORD ERABLES Final Result DERMATOPATHOLOGY LABORATORY [facility] - Department of Dermatology [address] [facility], 5th Floor Lab [address] [phone] documented in this encounter Visit Diagnoses Not on filedocumented in this encounter Care Teams Quality Assurance Inspector Relationship Specialty Start Date End Date Tita Russell MD PCP - General Internal Medicine 03/16/19 documented as of this encounter
--- OUTSIDE RECORDS SUMMARY | 2025-05-25 11:09 | XMS_ITS | Encounter Summary ---
Author Organization [facility] Address [address] [place] [address] Care Team Providers Care Drawing Box Tender Name Role Phone Emi Dias MD Primary Care Provider [phone] Encounter Details Date Type Department Care Team [...] on file Legal Sex Female 5:05 AM BLANKBOOK STITCHING MACHINE OPERATOR Gender Identity Not on file Sexual Orientation Not on file documented as of this encounter Plan of Treatment Upcoming Encounters Date Type Department Care Team (Late st Contact Info) Description 06/01/2025 11:30 AM CDT Office Visit [facility] Oncology and Hematology - Pablo [address] [facility] [address] [place] [address] Karl Singh MD [address] [facility] [address] [place] [address] documented as of this encounter Procedures Procedure Name Priority Date/Time Associated Diagnosis Comments POC GLUCOSE Routine 07/23/2006 4:50 PM BLANKBOOK STITCHING MACHINE OPERATOR POC GLUCOSE Routine 07/23/2006 6:29 AM BLANKBOOK STITCHING MACHINE OPERATOR CBC WITH DIFFERENTIAL Routine 07/23/2006 4:45 AM BLANKBOOK STITCHING MACHINE OPERATOR CBC WITH DIFFERENTIAL Routine 07/23/2006 4:45 AM BLANKBOOK STITCHING MACHINE OPERATOR MAGNESIUM LEVEL Routine 07/23/2006 4:45 AM BLANKBOOK STITCHING MACHINE OPERATOR BASIC METABOLIC PANEL Routine 07/23/2006 4:45 AM BLANKBOOK STITCHING MACHINE OPERATOR POC GLUCOSE Routine 07/22/2006 8:39 PM BLANKBOOK STITCHING MACHINE OPERATOR POC GLUCOSE Routine 07/22/2006 5:11 PM BLANKBOOK STITCHING MACHINE OPERATOR CBC WITH DIFFERENTIAL Routine 07/22/2006 2:13 PM BLANKBOOK STITCHING MACHINE OPERATOR CBC WITH DIFFERENTIAL Routine 07/22/2006 2:13 PM BLANKBOOK STITCHING MACHINE OPERATOR MAGNESIUM LEVEL Routine 07/22/2006 2:13 PM BLANKBOOK STITCHING MACHINE OPERATOR BASIC METABOLIC PANEL Routine 07/22/2006 2:13 PM BLANKBOOK STITCHING MACHINE OPERATOR POC GLUCOSE Routine 07/22/2006 11:41 AM BLANKBOOK STITCHING MACHINE OPERATOR POC GLUCOSE Routine 07/22/2006 5:15 AM BLANKBOOK STITCHING MACHINE OPERATOR POC GLUCOSE Routine 07/21/2006 9:39 PM BLANKBOOK STITCHING MACHINE OPERATOR POC GLUCOSE Routine 07/21/2006 10:27 AM BLANKBOOK STITCHING MACHINE OPERATOR POC , URINE Routine 07/21/2006 9:17 AM BLANKBOOK STITCHING MACHINE OPERATOR documented in this encounter Results * (ABNORMAL) POC GLUCOSE (07/23/2006 4:50 PM BLANKBOOK STITCHING MACHINE OPERATOR) GLUCOSE POC 137(H) 65 - 99 mg/dL INTERFACE SYSTEM Comment: 06/26/2006 Change in reference range to correspond to Main Lab reference range. 07/23/2006 4:50 PM BLANKBOOK STITCHING MACHINE OPERATOR us Renae Mike MD POINT OF CARE TESTING Final R esult Performing Organization Address [facility] de Phone Number INTERFACE SYSTEM Refer to clinic/hospital department * (ABNORMAL) POC GLUCOSE (07/23/2006 6:29 AM BLANKBOOK STITCHING MACHINE OPERATOR) Pathologist [facility] GLUCOSE POC 167(H) 65 - 99 mg/dL INTERFACE SYSTEM Comment: 06/26/2006 Change in reference range to correspond to Main Lab reference range. 07/23/2006 6:29 AM BLANKBOOK STITCHING MACHINE OPERATOR Renae Mike MD POINT OF CARE TESTING Final R esult Performing Organization Address [facility] de Phone Number INTERFACE SYSTEM Refer to clinic/hospital department * CBC WITH DIFFERENTIAL (07/23/2006 4:45 AM BLANKBOOK STITCHING MACHINE OPERATOR) [facility] NEUTROPHILS 66 45 - 70 % INTERFAC [...] 0.20 K/uL INTERFACE SYSTEM 07/23/2006 4:45 AM BLANKBOOK STITCHING MACHINE OPERATOR Result [facility] Renae Mike MD HEMATOLOGY ORDERABLES Final R esult Performing Organization Address [facility] de Phone Number INTERFACE SYSTEM Refer to clinic/hospital department * (ABNORMAL) CBC WITH DIFFERENTIAL (07/23/2006 4:45 AM BLANKBOOK STITCHING MACHINE OPERATOR) Pathologist [facility] WBC 8.7 4.0 - 9.8 K/uL INTERFACE [...] 12.4 fL INTERFACE SYSTEM 07/23/2006 4:45 AM BLANKBOOK STITCHING MACHINE OPERATOR Renae Mike MD HEMATOLOGY ORDERABLES Final R esult Performing Organization Address [facility] Co de Phone Number INTERFACE SYSTEM Refer to clinic/hospital department * MAGNESIUM LEVEL (07/23/2006 4:45 AM BLANKBOOK STITCHING MACHINE OPERATOR) MAGNESIUM 1.9 1.5 - 2.5 mg/dL INTERFACE SYSTEM 07/23/2006 4:45 AM BLANKBOOK STITCHING MACHINE OPERATOR Renae Mike MD CHEMISTRY ORDERABLES Final Re sult Performing Organization Address [facility] de Phone Number INTERFACE SYSTEM Refer to clinic/hospital department * (ABNORMAL) BASIC METABOLIC PANEL (07/23/2006 4:45 AM BLANKBOOK STITCHING MACHINE OPERATOR) GLUCOSE 126(H) 65 - 99 mg/dL [...] and non- Americans is available on the [facility] Intranet at: [email or web address] Select: Lab Policies and Procedures Select: Reference Ranges - GFR 07/23/2006 4:45 AM BLANKBOOK STITCHING MACHINE OPERATOR Result Kelly Mike MD CHEMISTRY ORDERABLES Final Re sult Performing Organization Address [facility] Phone Number INTERFACE SYSTEM Refer to clinic/hospital department * (ABNORMAL) POC GLUCOSE (07/22/2006 8:39 PM BLANKBOOK STITCHING MACHINE OPERATOR) COMMENT, GLU POC Notified RN INTERFACE SYSTEM GLUCOSE POC 145(H) 65 - 99 mg/dL INTERFACE SYSTEM Comment: 06/26/2006 Change in reference range to correspond to Main Lab reference range. 07/22/2006 8:39 PM BLANKBOOK STITCHING MACHINE OPERATOR us Renae [place] MD POINT OF CARE TESTING Final R esult Performing Organization Address [facility] Phone Number INTERFACE SYSTEM Refer to clinic/hospital department * (ABNORMAL) POC GLUCOSE (07/22/2006 5:11 PM BLANKBOOK STITCHING MACHINE OPERATOR) GLUCOSE POC 121(H) 65 - 99 mg/dL INTERFACE SYSTEM 07/22/2006 5:11 PM BLANKBOOK STITCHING MACHINE OPERATOR Result Kelly Mike MD POINT OF CARE TESTING Final R kenneth Performing Organization Address [facility] Phone Number INTERFACE SYSTEM Refer to clinic/hospital department * (ABNORMAL) CBC WITH DIFFERENTIAL (07/22/2006 2:13 PM BLANKBOOK STITCHING MACHINE OPERATOR) NEUTROPHILS 73(H) 45 - 70 % [...] 0.20 K/uL INTERFACE SYSTEM 07/22/2006 2:13 PM BLANKBOOK STITCHING MACHINE OPERATOR Renae [place] MD HEMATOLOGY ORDERABLES Final R esult Performing Organization Address [facility] Phone Number INTERFACE SYSTEM Refer to clinic/hospital department * (ABNORMAL) CBC WITH DIFFERENTIAL (07/22/2006 2:13 PM BLANKBOOK STITCHING MACHINE OPERATOR) WBC 13.1(H) 4.0 - 9.8 K/uL [...] 12.4 fL INTERFACE SYSTEM 07/22/2006 2:13 PM BLANKBOOK STITCHING MACHINE OPERATOR Renae [place] MD HEMATOLOGY ORDERABLES Final R esult Performing Organization Address [facility] Phone Number INTERFACE SYSTEM Refer to clinic/hospital department * MAGNESIUM LEVEL (07/22/2006 2:13 PM BLANKBOOK STITCHING MACHINE OPERATOR) MAGNESIUM 1.9 1.5 - 2.5 mg/dL INTERFACE SYSTEM 07/22/2006 2:13 PM BLANKBOOK STITCHING MACHINE OPERATOR Renae [place] MD CHEMISTRY ORDERABLES Final Re sult Performing Organization Address [facility] Phone Number INTERFACE SYSTEM Refer to clinic/hospital department * (ABNORMAL) BASIC METABOLIC PANEL (07/22/2006 2:13 PM BLANKBOOK STITCHING MACHINE OPERATOR) GLUCOSE 112(H) 65 - 99 mg/dL [...] and non- Americans is available on the [facility] Intranet at: [email or web address] be[email or web address] Select: Lab Policies and Procedures Select: Reference Ranges - GFR 07/22/2006 2:13 PM BLANKBOOK STITCHING MACHINE OPERATOR Renae [place] MD CHEMISTRY ORDERABLES Final Re sult Performing Organization Address [facility] de Phone Number INTERFACE SYSTEM Refer to clinic/hospital department * (ABNORMAL) POC GLUCOSE (07/22/2006 11:41 AM BLANKBOOK STITCHING MACHINE OPERATOR) GLUCOSE POC 146(H) 65 - 99 mg/dL INTERFACE SYSTEM Comment: 06/26/2006 Change in reference range to correspond to Main Lab reference range. 07/22/2006 11:4 1 AM BLANKBOOK STITCHING MACHINE OPERATOR Renae Mike MD POINT OF CARE TESTING Final R esult Performing Organization Address [facility] Co de Phone Number INTERFACE SYSTEM Refer to clinic/hospital department * (ABNORMAL) POC GLUCOSE (07/22/2006 5:15 AM BLANKBOOK STITCHING MACHINE OPERATOR) GLUCOSE POC 190(H) 65 - 99 mg/dL INTERFACE SYSTEM Comment: 06/26/2006 Change in reference range to correspond to Main Lab reference range. 07/22/2006 5:15 AM BLANKBOOK STITCHING MACHINE OPERATOR us Renae [place] MD POINT OF CARE TESTING Final R esult Performing Organization Address [facility] Phone Number INTERFACE SYSTEM Refer to clinic/hospital department * (ABNORMAL) POC GLUCOSE (07/21/2006 9:39 PM BLANKBOOK STITCHING MACHINE OPERATOR) GLUCOSE POC 165(H) 65 - 99 mg/dL INTERFACE SYSTEM Comment: 06/26/2006 Change in reference range to correspond to Main Lab reference range. 07/21/2006 9:39 PM BLANKBOOK STITCHING MACHINE OPERATOR us Renae [place] MD POINT OF CARE TESTING Final R esult Performing Organization Address [facility] Phone Number INTERFACE SYSTEM Refer to clinic/hospital department * (ABNORMAL) POC GLUCOSE (07/21/2006 10:27 AM BLANKBOOK STITCHING MACHINE OPERATOR) GLUCOSE POC 112(H) 65 - 99 mg/dL INTERFACE SYSTEM Comment: 06/26/2006 Change in reference range to correspond to Main Lab reference range. 07/21/2006 10:2 7 AM BLANKBOOK STITCHING MACHINE OPERATOR us Renae [place] MD POINT OF CARE TESTING Final R esult Performing Organization Address [facility] Phone Number INTERFACE SYSTEM Refer to clinic/hospital department * POC , URINE (07/21/2006 9:17 AM BLANKBOOK STITCHING MACHINE OPERATOR) HCG QUAL URINE Negative Negative INTER FACE SYSTEM SPECIFIC GRAVITY UA 1.020 1.001 - 1.035 INTERFACE SYSTEM 07/21/2006 9:17 AM BLANKBOOK STITCHING MACHINE OPERATOR Result Kelly Mike MD POINT OF CARE TESTING Final R esult Performing Organization Address [facility] Phone Number INTERFACE SYSTEM Refer to clinic/hospital department documented in this encounter Visit Diagnoses Diagnosis Malignant neoplasm of corpus uteri, except isthmus (CMS/HCC)- Primary Malignant neoplasm of corpus uteri, except isthmus documented in this encounter Care Teams Drawing Box Tender Relationship Specialty [place] [id number] [address] PCP - General Family Practice 11/12/23 documented as of this encounter
--- OUTSIDE RECORDS SUMMARY | 2025-05-25 11:09 | XMS_ITS | Clinical Summary ---
Author Organization [facility] Address [address] [place] [address] Care Team Providers Care Resaw Machine Operator Name Role Phone Tita Russell MD Primary Care Provider [phone] Source Comments [facility],non-owned Affiliates and Associated Physician Practices is amultiple site organization consisting of ambulatory clinics and hospital sitesin [place], [place], [place] and [place]. This disclosure is being madepursuant to the Care Everywhere program and may not contain all information available regarding this patient. Last updated 18.[facility] Social History Tobacco Use Types Packs/Day Years Used Date Smoking Tobacco: Never Assessed Comments Unknown Sex and Gender Information Value Date Recorded Sex Assigned at Not on file Legal Sex Female 6:01 PM HEADING SAW OPERATOR Gender Identity Not on file Sexual [...] yrs (1 - 1-dose 75+ series) 11/06/2022 DEPRESSION SCREENING 08/11/2024 COVID-19 VACCINE ( - 2023-2 5 season) 2025 INFLUENZA VACCINE (#1) 2025 8, 05/23/2017 HEPATITIS B VACCINE Aged Out No [...] on patient's age to complete this topic Insurance MEDICARE MEDICARE MEDICARE SUPPLEMENT PAYOR GENERIC SELF PAY NO INSURANCE Member Subscriber Plan / Payer (Ef fective for All Dates) Name:Angelica Coleman Member ID:Not on file Relation to Subscriber:Not on file Name:LUPEANGELICA Subscriber ID:Not on file (Home) Address: [address] [place] [id number] Payer ID:Not on file Group ID:Not on file Type:Self Pay Address: [place], [place] Care Teams Resaw Machine Operator Relationship Specialty Start Date End Date Tita Russell MD PCP - General Internal Medicine 03/16/19
--- OUTSIDE RECORDS SUMMARY | 2025-05-25 11:09 | XMS_ITS | Clinical Summary ---
Author Organization [facility] Administrative Offices Address [address] [place] [address] Care Team Providers Care Comber Operator Name Role Phone Emi Dias MD Primary Care Provider [phone] Allergies Active Allergy Reactions Criticality Noted Date [...] pressure Stomach pain Neomycin Rash High 03/26/2019 Vsshqahr-Gnttcfsxlq-Yixqh yxin Rash High 03/26/2019 Vpkfnezq-Qopcumwlpvd-Qsaz myxnb Rash High 05/12/2017 Olopatadine Rash Low [...] Throat swells closed Soap Rash High 03/26/2019 Lnvyhwu-Jwu-Arl Reductase Inhibitors Dizziness,Swelling High 01/28/2012 Throat swells [...] as needed. 0 Active mv,hodan,iron,mn/fo lic acid/chol (QZET-SXVT-JUIGD, PABA, ORAL) 1 Active gmgzzrq-K9-uxtu-c opper-jackie 325 mg-12.5 mcg -2.75 mg Tablet [...] mg) by mouth daily. 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, estrogen receptor positive (CMS/HCC) (Primary Dx) 03/15/2025 External Device Data STL ABSTRACTION Provider, Abstract 02/23/2025 External Device Data STL ABSTRACTION Provider, Abstract 02/22/2025 External Device Data STL ABSTRACTION Provider, Abstract [...] Tobacco: Never Alcohol Use Standard Drinks/Week Comments Not Currently 0 (1 standard drink = 0.6 oz pur e alcohol) Comments No Sex and Gender Information Value Date Recorded Sex Assigned at Not on file Legal Sex Female 5:05 AM PAPERBACK MACHINE OPERATOR Gender Identity Not on file Sexual Orientation Not on file Occupation Industry Job Start Date Job End Date Not on file Not on file Not on file Not on file Not on file Not on file Not on file Not on file Last Filed Vital Signs Vital Sign Reading Time Taken Comments Blood Pressure 127/72 11/24/2024 11:15 AM CDT Pulse 93 11/24/2024 11:13 AM CDT Temperature 37.3 C (99.1 F) 11/24/2024 11:13 AM CDT Respiratory Rate 16 11/24/2024 11:13 AM CDT Oxygen Saturation 95% 11/24/2024 11:13 AM CDT Inhaled Oxygen Concentration - - Weight 83.6 kg (184 lb 3.2 oz) 11/24/2024 11:13 AM CDT Height 157.5 cm (5' 2) 01/01/2024 10:55 AM CDT Body Mass Index 33.69 01/01/2024 10:55 AM CDT Plan of Treatment Upcoming Encounters Date Type Department Care Team (Late st Contact Info) Description 06/01/2025 11:30 AM CDT Office Visit [facility] Oncology and Hematology - Pablo [address] [place] [address] Karl Singh MD [address] [facility] [address] [place] [address] Health Maintenance Due Date Last Done Comments DIABETES ANNUAL FOOT EXAM 11/06/1965 DIABETES MICROALBUMIN ANNUAL SCREEN 11/06/1965 LDL CHOLESTEROL ANNUAL 11/06/1965 Traditional Medicare (ACO) A nnual Wellness Visit 11/06/1966 ZOSTER VACCINE (1 of 2) 11/06/1997 DIABETES ANNUAL RETINAL EXAM 09/07/2022, 09/07/2021, 11/26/2016, Additional history exists RSV VACCINE (60+ or ) (1 - 1-dose 75+ series) 11/06/2022 INFLUENZA VACCINE (#1) 2025 4, 06/19/2023, 05/23/2022, Additional history exists DIABETES HBA1C Q 6 MONTHS 03/24/20252024, 03/03/2024, 09/18/2023, Additional history exists COVID-19 Vaccine (2 - 2024-2 6 season) 2025 10/13/2020 OSTEOPOROSIS SCREENING 08/20/2028 4, 08/20/2023, 08/20/2023, Additional history exists DTAP/TDAP/TD VACCINES (4 - T d or Tdap) 03/12/2034 03/12/2024, 11/05/2013, 07/11/2006 Flex Sig/CT Colonography Q 5 years Discontinued 05/26/2015 COLORECTAL SCREENING Discontinued 05/10/2019, 05/10/2019, 05/26/2015, Additional history exists Colorectal Cancer Screening Discontinued PNEUMOCOCCAL VACCINE 50+ YEARS Completed 0 04/23/2023, 05/06/2018, 04/30/2013 FIT-DNA Q 3 years Discontinued FIT/FOBT Q 1 year Discontinued Medical Devices Implanted Type Area Ms Sql Dba Device Identifier Shelf Expiration Date Model / Serial / Lot Harmonica Maker Clip Surgiclip Ii Farzad 9.75in [id number] - [id number] Implanted:Qty: 1 on 09/27/2019 by Sujata Sánchez MD at [facility] Clip Left: Axilla [employer] - COVIDIEN 03/10/2024 [id number] / / [id number] Harmonica Maker Clip Surgiclip Ii Farzad 9.75in [id number] - [id number] Implanted:Qty: 1 on 09/27/2019 by Sujata Sánchez MD at [facility] Clip Left: Axilla [employer] - COVIDIEN 06/10/2024 [id number] / / [id number] Hemostatic Surgicel 4x8in 195 - [id number] Implanted:Qty: 3 on 09/27/2019 by Sujata Sánchez MD at [facility] Hemostatic Left: Breast [employer] 10/09/20231951 / / [id number] Hemostatic Surgicel 4x8in 195 - [id number] Implanted:Qty: 1 on 11/10/2019 by Sujata Sánchez MD at [facility] Hemostatic Left: Breast [employer] 10/09/20232 / / [id number] Procedures Procedure Name Priority Date/Time Associated Diagnosis Comments XR DEXA BONE DENSITY AXIAL 1 OR MORE SITES Routine 08/20/2023 11:07 AM PAPERBACK MACHINE OPERATOR from Last 3 Months or Most Recently Relevant to Health Maintenance Results * XR DEXA BONE DENSITY AXIAL 1 OR MORE SITES (08/20/2023 11:07 AM PAPERBACK MACHINE OPERATOR) Anatomical Region Laterality Modality Other us Abstract Provider DIAGNOSTIC IMAGING ORDERABLES Edited Result - Final from Last 3 Months or Most Recently Relevant to Health Maintenance Insurance MEDICARE PART A AND B [place] MEDICARE SUPP RX [employer] Medicare Part D [facility] [place] [place]PP MEDICARE PART A AND B Advance Directives For more information, please contact: [phone] * Full Code (Latest Code Status on File) Date Activated Date Inactivated Comments 09/27/2019 3:10 PM 09/28/2019 3:37 PM Care Teams Comber Operator Relationship Specialty [place] [address] [address] PCP - General Family Practice 11/12/23
--- OUTSIDE RECORDS SUMMARY | 2025-05-25 11:09 | XMS_ITS | Encounter Summary ---
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, estrogen receptor positive (CMS/HCC) (Primary Dx) Social History Tobacco Use Types Packs/Day Years Used Date Smoking Tobacco: Never Smokeless Tobacco: Never Alcohol Use Standard Drinks/Week Comments Not Currently 0 (1 standard drink = 0.6 oz pur e alcohol) Comments No Sex and Gender Information Value Date Recorded Sex Assigned at Not on file Legal Sex Female 5:05 AM OPTOMETRY PROFESSOR Gender Identity Not on file Sexual Orientation [...] Description 06/01/2025 11:30 AM CDT Office Visit [facility] Oncology and Hematology - Syl[place] [address] [facility] [address] [place] [address] Karl Singh MD [address] [facility] [address] [place] [address] Scheduled Orders Name Type Priority Associated Diagnoses Orde r Schedule MAMMO 3D FLORENCIO DIAGNOSTIC UNI RIGHT W CONTRAST Imaging Routine 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 [address] [place] [address] PCP - General Family Practice 11/12/23 documented as of this encounter
--- OUTSIDE RECORDS SUMMARY | 2025-05-25 11:09 | XMS_ITS | Encounter Summary ---
Author Organization [facility] Address [address] [place] [address] Care Team Providers Care Film Sound Coordinator Name Role Phone Emi Dias MD Primary Care Provider [phone] Encounter Details Date Type Department Care Team (Late st Contact Info) Description 04/01/2019 Chart Note [facility] Radiation Therapy [address] [place] [address] [place] [address] [place] [address] Social History Tobacco Use Types Packs/Day Years Used Date Smoking Tobacco: Never Smokeless Tobacco: Never Alcohol Use Standard Drinks/Week Comments Yes 0 (1 standard drink = 0.6 oz pur e alcohol) Comments No Sex and Gender Information Value Date Recorded Sex Assigned at Not on file Legal Sex Female 5:05 AM TIMEKEEPING SUPERVISOR Gender Identity Not on file Sexual Orientation [...] Description 06/01/2025 11:30 AM CDT Office Visit [facility] Oncology and Hematology - Pablo [address] [place] [address] Karl Singh MD [address] [facility] [address] [place] [address] documented as of this encounter Visit Diagnoses Not on filedocumented in this encounter Care Teams Film Sound Coordinator Relationship Specialty [place] [address] [address] PCP - General Family Practice 11/12/23 documented as of this encounter
== END 2025-05-25 09:46 | disposition home or self-care (01) ==
LOC: ANHFOHIMG 09:46
PROVIDERS: PCP Family Medicine; Visit Provider Internal Medicine Hematology & Oncology
DX: C50.412 Malignant neoplasm of upper-outer quadrant of left female breast (principal); Z17.0 Estrogen receptor positive status [ER+]; R92.8 Other abnormal and inconclusive findings on diagnostic imaging of breast
CPT/HCPCS: 36415; 76642; 77061; 77065; 80053; 85025; 85055; 86300; G0279

== ENCOUNTER 2025-05-25 11:35 | Outpatient (CLI) | payer MEDICARE, SELFPAY ==
[2025-05-25 11:53] LABS: Hematocrit 39.0 % (37.0-47.0); Hemoglobin 13.3 g/dL (12.0-15.0); Immature Granulocyte Percent A 0.2 % (0-0.5); Immature Platelet Fraction Pct 2.1 % (0.9-11.2); Lymphocytes Absolute Auto 1.85 K/mm3 (0.9-3.2); Mean Corpuscular HGB Conc 34.1 g/dl (32-36); Mean Corpuscular Hemoglobin 33.2 pg (26-34); Mean Corpuscular Volume 97.3 fl (80-100); Nucleated Red Blood Cells Absolute Auto 0.000 K/mm3 (0.0-0.012); Nucleated Red Blood Cells Perc 0.0 % (0.0-0.2); Platelet Count Result 95 k/mm3 (150-375); Red Blood Count 4.01 M/mm3 (4.2-5.4); White Blood Count 6.1 K/mm3 (4.5-10.0)
[2025-05-25 13:35] LABS: Alanine Aminotransferase 29 U/L (6-35); Albumin Level 3.6 g/dL (3.5-5.1); Alkaline Phosphatase 67 U/L (38-126); Anion Gap 6 mmol/L (4-12); Aspartate Amino Transferase 52 U/L (14-36); Bilirubin,Total 1.2 mg/dL (0.2-1.3); Blood Urea Nitrogen 8 mg/dL (7-17); Calcium 9.3 mg/dL (8.4-10.2); Carbon Dioxide 26 mmol/L (22-30); Chloride 108 mmol/L (98-107); Estimated Glomerular Filt Rate > 60; Glucose 102 mg/dL (65-110); Potassium 3.9 mmol/L (3.4-5.0); Sodium 140 mmol/L (137-145); Total Protein 6.7 g/dL (6.3-8.2)
== END 2025-05-25 11:36 | disposition home or self-care (01) ==
PROVIDERS: PCP Family Medicine; Visit Provider Internal Medicine Hematology & Oncology
DX: C50.412 Malignant neoplasm of upper-outer quadrant of left female breast (principal); Z17.0 Estrogen receptor positive status [ER+]
CPT/HCPCS: 36415; 80053; 85025; 85055; 86300